=== PATIENT | female | born 1980 | race Hispanic/Latino ===

== ENCOUNTER 2018-05-16 06:59 | Inpatient (IN) | payer OTHER ==
[2018-05-16] MEDS ORDERED: ZOFRAN IV ONE (07:19)
[2018-05-16] MEDS ORDERED: DILAUDID IV ONE ×2 (07:19→10:15)
--- NOTE | 2018-05-16 07:28 | Emergency Department Report ---
HPI - General Chief Complaint: Back Pain/Injury Time Seen by Provider: 05/16/18 07:18 - [facility] HPI: Room 20 The patient is a 38-year-old female presenting with a chief complaint of back pain. The patient states she began having back pain at approximately midnight. The patient states she went to bed approximately one hour prior to arrival the pain worsened and awakened her. Patient denies abdominal pain or chest pain. Patient uncertain if she had a fever. Patient denies shortness of breath but admits to pleurisy Location: Back Duration: [See above] Quality: Pain Severity:02/24 Modifying factors: [see above] Context: [see above] Mode of transportation: [not driving] ED Past Medical Hx - Past Medical History Hx Hypertension: Yes Hx Diabetes: Yes Additional medical history: Polycystic ovarian syndrome - Surgical History Hx Appendectomy: Yes Additional Surgical History: Ovarian cyst removal, tumor removed from uterus - Family History Family history: no significant - Social History Smoking Status: Current Every Day Smoker (1/2 pack per day) Substance Use Type: Alcohol (occasional), Marijuana ED Review of Systems ROS: Stated complaint: BACK PAIN Other details as noted in HPI Constitutional: no symptoms reported Eyes: denies: eye pain ENT: denies: throat pain Respiratory: denies: shortness of breath Cardiovascular: denies: chest pain Endocrine: no symptoms reported Gastrointestinal: denies: abdominal pain Genitourinary: denies: dysuria Musculoskeletal: back pain Neurological: denies: headache Physical Exam - Physical Exam Vital Signs: Vital Signs 05/16/18 07:09 Temperature 98.3 F Pulse Rate 108 H Respiratory 21 Rate Blood Pressure 231/144 O2 Sat by Pulse 99 Oximetry Physical Exam: GENERAL: The patient is well-developed well-nourished female lying on stretcher tearful yelling in pain. [] HEENT: Normocephalic. Atraumatic. Extraocular motions are intact. Patient has moist mucous membranes. NECK: Supple. Trachea midline CHEST/LUNGS: Clear to auscultation. There is no respiratory distress noted. HEART/CARDIOVASCULAR: Regular. There is no tachycardia. There is no gallop rub or murmur. ABDOMEN: Abdomen is soft, nontender. Patient has normal bowel sounds. There is no abdominal distention. No abdominal bruit auscultated SKIN: There is no rash. There is no edema. There is no diaphoresis. NEURO: The patient is awake, alert, and oriented. The patient is cooperative. The patient has no focal neurologic deficits. The patient has normal speech MUSCULOSKELETAL: Patient complains of pain to the mid back approximately T8 level but it is not tender to palpation. ED Course Vital Signs 05/16/18 07:09 Temperature 98.3 F Pulse Rate 108 H Respiratory 21 Rate Blood Pressure 231/144 O2 Sat by Pulse 99 Oximetry ED Medical Decision Making - Lab Data Result diagrams: 05/16/18 07:22 05/16/18 07:22 Laboratory Tests 05/16/18 05/16/18 05/16/18 07:22 07:22 07:22 WBC 22.6 H RBC 5.18 H Hgb 15.9 H Hct 46.8 H MCV 90 MCH 31 MCHC 34 RDW 13.2 Plt Count 393 Lymph # Api Product Manager PT 12.6 INR 0.90 APTT 25.6 Sodium 140 Potassium 3.6 Chloride 100.6 Carbon Dioxide 22 Anion Gap 21 BUN 12 Creatinine 0.7 Estimated GFR > 60 BUN/Creatinine Ratio 17 Glucose 122 H Calcium 9.5 Total Bilirubin 0.40 AST 16 ALT 10 Alkaline Phosphatase 120 Total Creatine Kinase 59 CK-MB (CK-2) 1.1 CK-MB (CK-2) Rel Index 1.8 Troponin T < 0.010 Total Protein 8.0 Albumin 4.4 Albumin/Globulin Ratio 1.2 Lipase 39 HCG, Qual Urine Color Urine Turbidity Urine pH Ur Specific [place] Urine Protein Urine Glucose (UA) Urine Ketones Urine Blood Urine Nitrite Urine Bilirubin Urine Urobilinogen Ur Leukocyte Esterase Urine WBC (Auto) Urine RBC (Auto) U Epithel Cells (Auto) Urine Mucus Blood Type Antibody Screen 05/16/18 05/16/18 05/16/18 07:25 08:09 09:10 WBC RBC Hgb Hct MCV MCH MCHC RDW Plt Count Lymph # PT INR APTT Sodium Potassium Chloride Carbon Dioxide Anion Gap BUN Creatinine Estimated GFR BUN/Creatinine Ratio Glucose Calcium Total Bilirubin AST ALT Alkaline Phosphatase Total Creatine Kinase CK-MB (CK-2) CK-MB (CK-2) Rel Index Troponin T Total Protein Albumin Albumin/Globulin Ratio Lipase HCG, Qual Negative Urine Color Yellow Urine Turbidity Slightly-cloudy Urine pH 5.0 Ur Specific [place] > 1.059 H Urine Protein <15 mg/dl Urine Glucose (UA) Neg Urine Ketones Neg Urine Blood Mod Urine Nitrite Neg Urine Bilirubin Neg Urine Urobilinogen < 2.0 Ur Leukocyte Esterase Neg Urine WBC (Auto) 5.0 Urine RBC (Auto) 32.0 U Epithel Cells (Auto) < 1.0 Urine Mucus 1+ Blood Type A POSITIVE Antibody Screen Negative - EKG Data -: EKG Interpreted by Oh EKG shows normal: sinus rhythm Rate: normal - EKG Data When compared to previous EKG there are: previous EKG unavailable Interpretation: other (no ischemic changes seen) - Radiology Data Radiology results: report reviewed (CT chest, CT abdomen and pelvis), image reviewed (CT chest, CT abdomen and pelvis) [address] [address] Cat Scan Report Signed Patient: YAZMIN HAND MR#: [id number] : 1980 Acct:[id number] Age/Sex: 38 / F ADM Date: 05/16/18 Loc: ED Attending Dr: Ordering Physician: MICHAEL SHIN MD Date of Service: 05/16/18 Procedure(s): CT angio chest Accession Number(s): [id number] cc: MICHAEL SHIN MD FINAL REPORT EXAM: CT ANGIO CHEST HISTORY: severe back pain, hypertension TECHNIQUE: CT imaging obtained through the chest in angiographic phase following intravenous administration of contrast. Transaxial, Coronal and sagittal reformats with maximal intensity projections are provided. PRIORS: None. FINDINGS: Normal caliber main pulmonary artery. Well opacified pulmonary arterial tree. No pulmonary embolism. No pericardial effusion. Thoracic aorta is normal in course and caliber. No periaortic fluid or stranding. No pneumothorax, effusion or focal airspace disease. The central airways are patent. No bronchiectasis. Imaged portion of the upper abdomen is unremarkable. The superficial soft tissues are unremarkable. No acute bony abnormality or worrisome osseous lesions identified. IMPRESSION: No findings of acute aortic syndrome, pulmonary embolism or other acute abnormalities in the chest. Transcribed By: MB Dictated By: MAYDA MELGAR MD Electronically Authenticated By: MAYDA MELGAR MD Signed Date/Time: 05/16/18921 DD/ 4 TD/TT: 05/16/[address] [address] Cat Scan Report Signed Patient: YAZMIN HAND MR#: [id number] : 1980 Acct:[id number] Age/Sex: 38 / F ADM Date: 05/16/18 Loc: ED Attending Dr: Ordering Physician: MICHAEL SHIN MD Date of Service: 05/16/18 Procedure(s): CT abdomen pelvis w con Accession Number(s): [id number] cc: MICHAEL SHIN MD FINAL REPORT EXAM: CT ABDOMEN PELVIS W CON HISTORY: severe back pain, hypertension TECHNIQUE: CT images are acquired through the Abdomen and Pelvis in arterial phase following intravenous administration of contrast. Transaxial, coronal and sagittal reformations are provided. PRIORS: None FINDINGS: Please see CT chest of the same date. Heterogeneous arterial phase enhancement of the spleen. The liver, gallbladder, pancreas, spleen, and adrenal glands are otherwise unremarkable. Kidneys show no worrisome lesions, hydronephrosis, or calculi. Urinary bladder is unremarkable. Anteverted uterus. Small and large bowel are normal in caliber. Prior appendectomy. No free air, free fluid, or lymphadenopathy identified. Aorta is normal in course and caliber. Superficial soft tissues are unremarkable. No acute or aggressive appearing skeletal findings. IMPRESSION: No findings of acute aortic syndrome or other acute abnormality in the abdomen or pelvis. Transcribed By: MB Dictated By: MAYDA MELGAR MD Electronically Authenticated By: MAYDA MELGAR MD Signed Date/Time: 05/16/18918 DD/ 0 TD/TT: 05/16/18920 - Differential Diagnosis aortic aneurysm, aortic dissection, PE, DDD Critical care attestation.: If time is entered above; I have spent that time in minutes in the direct care of this critically ill patient, excluding procedure time. ED Disposition Clinical Impression: Acute back pain, Hypertensive urgency, Leukocytosis Disposition: OP ADMIT IP TO THIS HOSP Is pt being admited?: Yes Does the pt Need Aspirin: No Condition: Fair Referrals: PRIMARY CARE, [Primary Care Provider] - 3-5 Days Time of Disposition: 10:01 (hospitalist notified)
[2018-05-16 07:29] LABS: Hematocrit 46.8 % (30.3-42.9); Hemoglobin 15.9 gm/dl (10.1-14.3); Mean Corpuscular HGB Conc 34 % (30-34); Mean Corpuscular Hemoglobin 31 pg (28-32); Mean Corpuscular Volume 90 fl (79-97); Platelet Count 393 K/mm3 (140-440); Red Blood Count 5.18 M/mm3 (3.65-5.03); Red Cell Distribution Width 13.2 % (13.2-15.2)
[2018-05-16 07:41] LABS: INR 0.9 (0.87-1.13)
[2018-05-16 07:42] LABS: Partial Thromboplastin Time 25.6 Sec. (24.2-36.6)
[2018-05-16 07:43] LABS: Creatine Kinase MB 1.1 ng/mL (0.0-4.0)
[2018-05-16 07:44] LABS: Alanine Aminotransferase 10 units/L (7-56); Albumin 4.4 g/dL (3.9-5); BUN/Creatinine Ratio 17; Blood Urea Nitrogen 12 mg/dL (7-17); Calcium 9.5 mg/dL (8.4-10.2); Hemolysis Index 26; Lipase 39 units/L (13-60)
[2018-05-16] MEDS ORDERED: NORMODYNE IV ONE ×2 (07:50→08:51)
--- NOTE | 2018-05-16 09:19 | Cat Scan Report ---
FINAL REPORT EXAM: CT ABDOMEN PELVIS W CON HISTORY: severe back pain, hypertension TECHNIQUE: CT images are acquired through the Abdomen and Pelvis in arterial phase following intrave nous administration of contrast. Transaxial, coronal and sagittal reformations are provided. PRIORS: None FINDINGS: Please see CT chest of the same date. Heterogeneous arterial phase enhancement of the spleen. The liver, gallbladder, pancreas, spleen, and adrenal glands are otherwise unremarkable. Kidneys show no worrisome lesions, hydronephrosis, or calculi. Urinary bladder is unremarkable. Antev erted uterus. Small and large bowel are normal in caliber. Prior appendectomy. No free air, free fluid, or lymphade nopathy identified. Aorta is normal in course and caliber. Superficial soft tissues are unremarkable. No acute or aggressive appearing skeletal findings. IMPRESSION: No findings of acute aortic syndrome or other acute abnormality in the abdomen or pelvis.
--- NOTE | 2018-05-16 09:22 | Cat Scan Report ---
FINAL REPORT EXAM: CT ANGIO CHEST HISTORY: severe back pain, hypertension TECHNIQUE: CT imaging obtained through the chest in angiographic phase following intravenous adminis tration of contrast. Transaxial, Coronal and sagittal reformats with maximal intensity projections ar e provided. PRIORS: None. FINDINGS: Normal caliber main pulmonary artery. Well opacified pulmonary arterial tree. No pulmonary embolism. No pericardial effusion. Thoracic aorta is normal in course and caliber. No periaortic fluid or stranding. No pneumothorax, effusion or focal airspace disease. The central airways are patent. No bronchiectasi s. Imaged portion of the upper abdomen is unremarkable. The superficial soft tissues are unremarkable. No acute bony abnormality or worrisome osseous lesions identified. IMPRESSION: No findings of acute aortic syndrome, pulmonary embolism or other acute abnormalities in the chest.
[2018-05-16 09:24] LABS: Bilirubin,Urine NEG (Negative); Blood,Urine MOD (Negative); Color,Urine Yellow (Yellow); Mucus,Urine 1+ /HPF; Protein,Urine <15 mg/dL mg/dL (Negative); Urobilinogen,Urine < 2.0 mg/dL (<2.0)
[2018-05-16] MEDS ORDERED: NACL 0.9% 1000 ML 1,000 ML IV ONE (09:57)
[2018-05-16] MEDS ORDERED: DILAUDID ONE (10:15)
[2018-05-16] MEDS ORDERED: COZAAR ONE (12:15)
[2018-05-16] MEDS: COZAAR PO SCH (12:18)
[2018-05-16] MEDS: ROCEPHIN/NS 2 GM/100 ML 2 GM/100 ML BAG IV SCH (12:18)
[2018-05-16 13:47] LABS: Band Neutrophils # (Manual) 0.5 K/mm3; Basophils % (Manual) 0 % (0.0-1.8); Total Cells Counted 100
[2018-05-16 13:48] LABS: RBC Morphology Normal
[2018-05-16] MEDS: DILAUDID IV PRN ×3 (15:07→21:17)
--- NOTE | 2018-05-16 17:43 | History and Physical Report ---
History of Present Illness Date of examination: 05/16/18 Date of admission: 05/16/18 09:59 Chief complaint: Chief complaint Severe mid back pain since 2 AM History of present illness: [place] 38-year-old female with a history of hypertension and diabetes and hydradenitis comes in for sudden onset of mid back pain. No previous trauma or lifting heavy weights. No fever or Chills. No shortness of breath chest pain or palpitations. Pain is 10 over 10 Past Medical History Hx Hypertension: Yes Hx Diabetes: Yes Additional medical history: Polycystic ovarian syndrome Surgical History Hx Appendectomy: Yes Additional Surgical History: Ovarian cyst removal, tumor removed from uterus Family History Family history: no significant Social History Smoking Status: Current Every Day Smoker (1/2 pack per day) Substance Use Type: Alcohol (occasional), Marijuana Review of Systems ROS: Stated complaint: BACK PAIN Other details as noted in HPI Constitutional: no symptoms reported Eyes: denies: eye pain ENT: denies: throat pain Respiratory: denies: shortness of breath Cardiovascular: denies: chest pain Endocrine: no symptoms reported Gastrointestinal: denies: abdominal pain Genitourinary: denies: dysuria Musculoskeletal: back pain Neurological: denies: headache Medications and Allergies Allergies Allergy/AdvReac Type Severity Reaction Status Date / Time No Known Allergies Allergy Verified 05/16/18 10:16 Home Medications Medication Instructions Recorded Confirmed Last Taken Type metFORMIN [Glucophage] 500 mg PO BID 05/16/18 05/16/18 Unknown History Active Meds: Active Medications Hydromorphone HCl (Dilaudid) 1 mg IV Q3H PRN PRN Reason: Pain , Severe (7-10) Last Admin: 05/16/18 15:07 Dose: 1 mg Documented by: Ceftriaxone Sodium (Rocephin/Ns 2 Gm/100 Ml) 2 gm in 100 mls @ 200 mls/hr IV Q24HR NAVI; Protocol Last Admin: 05/16/18 12:18 Dose: 200 mls/hr Documented by: Losartan Potassium (Cozaar) 100 mg PO QDAY [facility] Last Admin: 05/16/18 12:18 Dose: 100 mg Documented by: Exam - Constitutional Vitals: Temp Pulse Resp BP Pulse Ox 99.2 F 81 20 176/113 97 05/16/18 14:28 05/16/18 14:00 05/16/18 14:28 05/16/18 14:28 05/16/18 14:00 General appearance: Present: no acute distress, well-nourished - EENT Eyes: Present: PERRL ENT: hearing intact, clear oral mucosa - Neck Neck: Present: supple, normal ROM - Respiratory Respiratory effort: normal Respiratory: bilateral: CTA - Cardiovascular Heart rate: 78 Rhythm: regular Heart Sounds: Present: S1 & S2. Absent: rub, click - Extremities Extremities: no ischemia, pulses intact, pulses symmetrical, No edema Extremity abnormal: other (Tenderness in T 10 the spine is mildly well- developedregion ) Peripheral Pulses: within normal limits - Abdominal General gastrointestinal: Present: soft, non-tender, non-distended, normal bowel sounds Female genitourinary: Present: normal - Integumentary Integumentary: Present: clear, warm, dry - Musculoskeletal Musculoskeletal: gait normal, strength equal bilaterally - Psychiatric Psychiatric: appropriate mood/affect, intact judgment & insight - Neurologic Neurologic: CNII-XII intact, moves all extremities Results - Labs CBC & Chem 7: 05/16/18 07:22 05/16/18 07:22 Labs: Laboratory Last Values WBC 22.6 K/mm3 (4.5-11.0) H 05/16/18 07:22 RBC 5.18 M/mm3 (3.65-5.03) H 05/16/18 07:22 Hgb 15.9 gm/dl (10.1-14.3) H 05/16/18 07:22 Hct 46.8 % (30.3-42.9) H 05/16/18 07:22 MCV 90 fl (79-97) 05/16/18 07:22 MCH 31 pg (28-32) 05/16/18 07:22 MCHC 34 % (30-34) 05/16/18 07:22 RDW 13.2 % (13.2-15.2) 05/16/18 07:22 Plt Count 393 K/mm3 (140-440) 05/16/18 07:22 Lymph # Loader Technician 05/16/18 07:22 Add Manual Diff Complete 05/16/18 07:22 Total Counted 100 05/16/18 07:22 Seg Neuts % (Manual) 65.0 % (40.0-70.0) 05/16/18 07:22 Band Neutrophils % 2.0 % 05/16/18 07:22 Lymphocytes % (Manual) 24 % (13.4-35.0) 05/16/18 07:22 Reactive Lymphs % (Man) 2 % 05/16/18 07:22 Monocytes % (Manual) 6.0 % (0.0-7.3) 05/16/18 07:22 Eosinophils % (Manual) 1.0 % (0.0-4.3) 05/16/18 07:22 Basophils % (Manual) 0 % (0.0-1.8) 05/16/18 07:22 Metamyelocytes % 0 % 05/16/18 07:22 Myelocytes % 0 % 05/16/18 07:22 Promyelocytes % 0 % 05/16/18 07:22 Blast Cells % 0 % 05/16/18 07:22 Nucleated RBC % Not Reportable 05/16/18 07:22 Seg Neutrophils # Man 14.7 K/mm3 (1.8-7.7) H 05/16/18 07:22 Band Neutrophils # 0.5 K/mm3 05/16/18 07:22 Lymphocytes # (Manual) 5.4 K/mm3 (1.2-5.4) 05/16/18 07:22 Abs React Lymphs (Man) 0.4 K/mm3 05/16/18 07:22 Monocytes # (Manual) 1.4 K/mm3 (0.0-0.8) H 05/16/18 07:22 Eosinophils # (Manual) 0.2 K/mm3 (0.0-0.4) 05/16/18 07:22 Basophils # (Manual) 0.0 K/mm3 (0.0-0.1) 05/16/18 07:22 Metamyelocytes # 0.0 K/mm3 05/16/18 07:22 Myelocytes # 0.0 K/mm3 05/16/18 07:22 Promyelocytes # 0.0 K/mm3 05/16/18 07:22 Blast Cells # 0.0 K/mm3 05/16/18 07:22 WBC Morphology Not Reportable 05/16/18 07:22 Hypersegmented Neuts Not Reportable 05/16/18 07:22 Hyposegmented Neuts Not Reportable 05/16/18 07:22 Hypogranular Neuts Not Reportable 05/16/18 07:22 Smudge Cells Not Reportable 05/16/18 07:22 Toxic Granulation Not Reportable 05/16/18 07:22 Toxic Vacuolation Not Reportable 05/16/18 07:22 Dohle Bodies Not Reportable 05/16/18 07:22 Pelger-Huet Anomaly Not Reportable 05/16/18 07:22 Artem Rods Not Reportable 05/16/18 07:22 Platelet Estimate Not Reportable 05/16/18 07:22 Clumped Platelets Not Reportable 05/16/18 07:22 Plt Clumps, EDTA Not Reportable 05/16/18 07:22 Large Platelets Not Reportable 05/16/18 07:22 Giant Platelets Not Reportable 05/16/18 07:22 Platelet Satelliting Not Reportable 05/16/18 07:22 Plt Morphology Comment Not Reportable 05/16/18 07:22 RBC Morphology Normal 05/16/18 07:22 Dimorphic RBCs Not Reportable 05/16/18 07:22 Polychromasia Not Reportable 05/16/18 07:22 Hypochromasia Not Reportable 05/16/18 07:22 Poikilocytosis Not Reportable 05/16/18 07:22 Anisocytosis Not Reportable 05/16/18 07:22 Microcytosis Not Reportable 05/16/18 07:22 Macrocytosis Not Reportable 05/16/18 07:22 Spherocytes Not Reportable 05/16/18 07:22 Pappenheimer Bodies Not Reportable 05/16/18 07:22 Sickle Cells Not Reportable 05/16/18 07:22 Target Cells Not Reportable 05/16/18 07:22 Tear Drop Cells Not Reportable 05/16/18 07:22 Ovalocytes Not Reportable 05/16/18 07:22 Helmet Cells Not Reportable 05/16/18 07:22 [place] Bodies Not Reportable 05/16/18 07:22 [place] Rings Not Reportable 05/16/18 07:22 [place] Cells Not Reportable 05/16/18 07:22 Bite Cells Not Reportable 05/16/18 07:22 Crenated Cell Not Reportable 05/16/18 07:22 Elliptocytes Not Reportable 05/16/18 07:22 Acanthocytes (Spur) Not Reportable 05/16/18 07:22 Rouleaux Not Reportable 05/16/18 07:22 Hemoglobin C Crystals Not Reportable 05/16/18 07:22 Schistocytes Not Reportable 05/16/18 07:22 Malaria parasites Not Reportable 05/16/18 07:22 [place] Bodies Not Reportable 05/16/18 07:22 Hem Pathologist Commnt No 05/16/18 07:22 PT 12.6 Sec. (12.2-14.9) 05/16/18 07:22 INR 0.90 (0.87-1.13) 05/16/18 07:22 APTT 25.6 Sec. (24.2-36.6) 05/16/18 07:22 Sodium 140 mmol/L (137-145) 05/16/18 07:22 Potassium 3.6 mmol/L (3.6-5.0) 05/16/18 07:22 Chloride 100.6 mmol/L (98-107) 05/16/18 07:22 Carbon Dioxide 22 mmol/L (22-30) 05/16/18 07:22 Anion Gap 21 mmol/L 05/16/18 07:22 BUN 12 mg/dL (7-17) 05/16/18 07:22 Creatinine 0.7 mg/dL (0.7-1.2) 05/16/18 07:22 Estimated GFR > 60 ml/min 05/16/18 07:22 BUN/Creatinine Ratio 17 % 05/16/18 07:22 Glucose 122 mg/dL (65-100) H 05/16/18 07:22 Calcium 9.5 mg/dL (8.4-10.2) 05/16/18 07:22 Total Bilirubin 0.40 mg/dL (0.1-1.2) 05/16/18 07:22 AST 16 units/L (5-40) 05/16/18 07:22 ALT 10 units/L (7-56) 05/16/18 07:22 Alkaline Phosphatase 120 units/L (35-129) 05/16/18 07:22 Total Creatine Kinase 59 units/L (30-135) 05/16/18 07:22 CK-MB (CK-2) 1.1 ng/mL (0.0-4.0) 05/16/18 07:22 CK-MB (CK-2) Rel Index 1.8 (0-4) 05/16/18 07:22 Troponin T < 0.010 ng/mL (0.00-0.029) 05/16/18 07:22 Total Protein 8.0 g/dL (6.3-8.2) 05/16/18 07:22 Albumin 4.4 g/dL (3.9-5) 05/16/18 07:22 Albumin/Globulin Ratio 1.2 % 05/16/18 07:22 Lipase 39 units/L (13-60) 05/16/18 07:22 HCG, Qual Negative (Negative) 05/16/18 08:09 Urine Color Yellow (Yellow) 05/16/18 09:10 Urine Turbidity Slightly-cloudy (Clear) 05/16/18 09:10 Urine pH 5.0 (5.0-7.0) 05/16/18 09:10 Ur Specific [place] > 1.059 (1.003-1.030) H 05/16/18 09:10 Urine Protein <15 mg/dl mg/dL (Negative) 05/16/18 09:10 Urine Glucose (UA) Neg mg/dL (Negative) 05/16/18 09:10 Urine Ketones Neg mg/dL (Negative) 05/16/18 09:10 Urine Blood Mod (Negative) 05/16/18 09:10 Urine Nitrite Neg (Negative) 05/16/18 09:10 Urine Bilirubin Neg (Negative) 05/16/18 09:10 Urine Urobilinogen < 2.0 mg/dL (<2.0) 05/16/18 09:10 Ur Leukocyte Esterase Neg (Negative) 05/16/18 09:10 Urine WBC (Auto) 5.0 /HPF (0.0-6.0) 05/16/18 09:10 Urine RBC (Auto) 32.0 /HPF (0.0-6.0) 05/16/18 09:10 U Epithel Cells (Auto) < 1.0 /HPF (0-13.0) 05/16/18 09:10 Urine Mucus 1+ /HPF 05/16/18 09:10 Blood Type A POSITIVE 05/16/18 07:25 Antibody Screen Negative 05/16/18 07:25 Short CBC 05/16/18 Range/Units 07:22 WBC 22.6 H (4.5-11.0) K/mm3 Hgb 15.9 H (10.1-14.3) gm/dl Hct 46.8 H (30.3-42.9) % Plt Count 393 (140-440) K/mm3 [facility] 05/16/18 07:22 Sodium 140 Potassium 3.6 Chloride 100.6 Carbon Dioxide 22 BUN 12 Creatinine 0.7 Glucose 122 H Calcium 9.5 Cardiac Enzymes 05/16/18 Range/Units 07:22 Total Creatine Kinase 59 (30-135) units/L CK-MB (CK-2) 1.1 (0.0-4.0) ng/mL Troponin T < 0.010 (0.00-0.029) ng/mL Liver Function 05/16/18 Range/Units 07:22 Total Bilirubin 0.40 (0.1-1.2) mg/dL AST 16 (5-40) units/L ALT 10 (7-56) units/L Alkaline Phosphatase 120 (35-129) units/L Albumin 4.4 (3.9-5) g/dL Urine 05/16/18 Range/Units 09:10 Urine Color Yellow (Yellow) Urine pH 5.0 (5.0-7.0) Ur Specific [place] > 1.059 H (1.003-1.030) Urine Protein <15 mg/dl (Negative) mg/dL Urine Glucose (UA) Neg (Negative) mg/dL - Imaging and Cardiology Imaging and Cardiology: CT of the abdomen IMPRESSION: No findings of acute aortic syndrome or other acute abnormality in the abdomen or pelvis. CT angiogram of the chest FINDINGS: Normal caliber main pulmonary artery. Well opacified pulmonary arterial tree. No pulmonary embolism. No pericardial effusion. Thoracic aorta is normal in course and caliber. No periaortic fluid or stranding. No pneumothorax, effusion or focal airspace disease. The central airways are patent. No bronchiectasis. Imaged portion of the upper abdomen is unremarkable. The superficial soft tissues are unremarkable. No acute bony abnormality or worrisome osseous lesions identified. IMPRESSION: No findings of acute aortic syndrome, pulmonary embolism or other acute abnormalities in the chest. Assessment and Plan Advance Directives: Yes (full code) VTE prophylaxis?: Chemical Plan of care discussed with patient/family: Yes - Patient Problems (1) Acute back pain Current Visit: Yes Status: Acute Qualifiers: Back pain location: thoracic back pain Plan to address problem: MRI of the T-spine to rule out discitis IV vancomycin initiated and ceftriaxone (2) Hypertensive urgency Current Visit: Yes Status: Acute Plan to address problem: Initial blood pressure 231/144 BP meds initiated initiated (3) Leukocytosis Current Visit: Yes Status: Acute Plan to address problem: Possible discitis (4) Hypertension Current Visit: Yes Status: Chronic Qualifiers: Hypertension type: essential hypertension Qualified Code(s): I10 - Essential (primary) hypertension Plan to address problem: Continue antihypertensive (5) T2DM (type 2 diabetes mellitus) Current Visit: Yes Status: Acute Qualifiers: Diabetes mellitus nursing home insulin use: without nursing home use Plan to address problem: Continue her oral hypoglycemics and coverage Check hemoglobin A1c (6) DVT prophylaxis Current Visit: Yes Status: Acute Plan to address problem: On Lovenox
[2018-05-16] MEDS ORDERED: VANCOMYCIN PHARMACY TO DOSE IV SCH (18:00)
[2018-05-16] MEDS ORDERED: VANCOMYCIN 1,500 MG in NACL 0.9% 500 ML 500 ML IV ONE (18:30)
[2018-05-16] MEDS: GLUCOPHAGE PO SCH (22:34)
[2018-05-16] MEDS: COREG PO SCH (22:34)
[2018-05-16] MEDS: HumaLOG SUB-Q SCH (22:37)
[2018-05-17] MEDS: DILAUDID IV PRN ×5 (00:28→14:13)
[2018-05-17] MEDS ORDERED: VANCOMYCIN/NS 1 GM/250 ML 1 GM/250 ML BAG IV SCH (08:00)
[2018-05-17] MEDS: HumaLOG SUB-Q SCH ×3 (08:34→16:25)
[2018-05-17] MEDS: COZAAR PO SCH (10:22)
[2018-05-17] MEDS: ROCEPHIN/NS 2 GM/100 ML 2 GM/100 ML BAG IV SCH (10:23)
[2018-05-17] MEDS: COREG PO SCH (10:23)
[2018-05-17] MEDS: GLUCOPHAGE PO SCH (10:23)
[2018-05-17] MEDS ORDERED: ZOFRAN IV PRN (12:37)
[2018-05-17 13:41] VITALS: BP 146/92
--- NOTE | 2018-05-17 14:48 | Magnetic Resonance Report ---
MRI THORACIC SPINE WITH CONTRAST HISTORY: Severe mid back pain. TECHNIQUE: Multisequence, multiplanar MRI before and after IV gadolinium. COMPARISON: CTA chest dated 05/16/18. FINDINGS: There is normal height and alignment of the thoracic vertebral bodies. Normal bone marrow signal. No evidence for fracture, subluxation, infection or bone lesion. Mild degenerative disc narrowing and desiccation is noted in the mid to lower thoracic spine. No evidence for large bulging disc or herniation. A small left paracentral disc protrusion is identified at T7-8 without mass effect. The remaining levels are within normal limits. The thoracic spinal cord is normal size and signal intensity throughout. No central canal stenosis. No evidence for abnormal enhancement following IV gadolinium. A small layering right pleural effusion has developed since the previous CTA chest. IMPRESSION: Early thoracic spondylosis as described. Small left paracentral disc protrusion at T7-8 without mass effect. New small layering right pleural effusion of uncertain etiology.
--- NOTE | 2018-05-17 16:23 | Discharge Summary ---
Providers - Providers Date of Admission: 05/16/18 09:59 Date of discharge: 05/17/18 Attending physician: RAMON CHAMPAGNE Primary care physician: ASSOCIATE DIRECT[employer] Hospitalization Condition: Fair Hospital course: Patient Problems (1) Acute back pain Current Visit: Yes Status: Acute Qualifiers: Back pain location: thoracic back pain Plan to address problem: MRI of the T-spine --No Discitis or Disc prolapse (2) Hypertensive urgency Current Visit: Yes Status: Acute Plan to address problem: Initial blood pressure 231/144 BP meds initiated initiated BP better (3) Leukocytosis Current Visit: Yes Status: Acute Plan to address problem: Demargination (4) Hypertension Current Visit: Yes Status: Chronic Qualifiers: Hypertension type: essential hypertension Qualified Code(s): I10 - Essential (primary) hypertension Plan to address problem: Continue antihypertensive (5) T2DM (type 2 diabetes mellitus) Current Visit: Yes Status: Acute 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 [facility] 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 Plan to address problem: Continue her oral hypoglycemics and coverage Check hemoglobin A1c Disposition: TO HOME OR SELFCARE - Discharge Diagnoses (1) Acute back pain Status: Acute Qualifiers: Back pain location: thoracic back pain (2) Hypertensive urgency Status: Acute (3) Leukocytosis Status: Acute (4) Hypertension Status: Chronic Qualifiers: Hypertension type: essential hypertension Qualified Code(s): I10 - Essential (primary) hypertension (5) T2DM (type 2 diabetes mellitus) Status: Acute Qualifiers: Diabetes mellitus [facility] insulin use: without [facility] use (6) DVT prophylaxis Status: Acute Core Measure Documentation - Palliative Care Palliative Care/ Comfort Measures: Not Applicable - Core Measures Any of the following diagnoses?: none Exam - Constitutional Vitals: Temp Pulse Resp BP Pulse Ox 98.1 F 90 18 146/92 98 05/17/18 13:05 05/17/18 13:05 05/17/18 13:05 05/17/18 13:05 05/17/18 13:05 General appearance: Present: no acute distress, well-nourished - EENT Eyes: Present: PERRL ENT: hearing intact, clear oral mucosa - Neck Neck: Present: supple, normal ROM - Respiratory Respiratory effort: normal Respiratory: bilateral: CTA - Cardiovascular Heart Sounds: Present: S1 & S2. Absent: rub, click - Extremities Extremities: pulses symmetrical, No edema Peripheral Pulses: within normal limits - Abdominal General gastrointestinal: Present: soft, non-tender, non-distended, normal bowel sounds Female genitourinary: Present: normal - Integumentary Integumentary: Present: clear, warm, dry - Musculoskeletal Musculoskeletal: gait normal, strength equal bilaterally - Psychiatric Psychiatric: appropriate mood/affect, intact judgment & insight - Neurologic Neurologic: CNII-XII intact, moves all extremities Plan Follow up with: PRIMARY CARE, [Primary Care Provider] - 3-5 Days
== END 2018-05-17 17:30 | disposition home or self-care (01) | DRG 552 ==
LOC: ED 06:59 → 3A 09:59
PROVIDERS: ADMIT Internal Medicine; ATTEND Internal Medicine
DX: M54.6 Pain in thoracic spine (principal); I16.0 Hypertensive urgency; D72.829 Elevated white blood cell count, unspecified; I10 Essential (primary) hypertension; E11.9 Type 2 diabetes mellitus without complications; Z90.49 Acquired absence of other specified parts of digestive tract; F17.200 Nicotine dependence, unspecified, uncomplicated
CPT/HCPCS: 36415; 71275; 72157; 74177; 80053; 81001; 82550; 82553; 82962; 83036; 83690; 84484; 84703; 85007; 85025; 85610; 85730; 86850; 86900; 86901; 93005; 93010; 96365; 96375; 99406; G0378; A9577; J0696; J1170; J2405; J3370; J7030; J7040; Q9967

== ENCOUNTER 2018-05-31 08:39 | Inpatient (IN) | payer SELFPAY ==
--- NOTE | 2018-05-31 10:08 | Emergency Department Report ---
Minor Respiratory - HPI Chief Complaint: Back Pain/Injury Stated Complaint: PAIN R SIDE Time Seen by Provider: 05/31/18 10:06 Duration: SINCE END Apr Pain Location: Chest Severity: mild Minor Respiratory: Yes Able to Tolerate Fluids, Yes Cough, Yes Chest Pain (PLEURITIC AND SHARP IN NATURE), Yes Shortness of Breath, No Rhinorrhea, No Sore Throat, No Ear Pain, No Sick Contacts, No Hemoptysis, No Fever Other History: Patient is a 38-year-old female who comes to the ER today with severe pleuritic type chest pain. Patient states that she was just recently discharged from the hospital where she was treated for back pain. She was sent home on no antibiotics at that time. She was given antihypertensives and pain medicine. Patient did not get her medications filled due to cost. She denies fever at home but does report chills. She states that nothing that she does improve the pain. Pain is worse with deep breath. She is tachycardic. No hypoxia. PMH. PCOS. DM. HTN. DC 05/16. DID NOT GET MEDS FILLED SO SHE IS TAKING NOTHING AT HOME. SHE WAS INSTRUCTED TO TAKE COREG, METFORMIN AND LOSARTAN ED Review of Systems ROS: Stated complaint: LOWER BACK PAIN Other details as noted in HPI Comment: All other systems reviewed and negative Constitutional: see HPI, chills. denies: fever Eyes: denies: eye pain ENT: as per HPI, throat pain. denies: ear pain Respiratory: see HPI, cough, shortness of breath, wheezing. denies: orthopnea, SOB with exertion, SOB at rest, stridor Cardiovascular: as per HPI, chest pain. denies: palpitations, dyspnea on exertion, orthopnea, edema, syncope, paroxysmal nocturnal dyspnea Endocrine: denies: flushing, intolerance to cold, intolerance to heat Gastrointestinal: denies: abdominal pain, nausea Genitourinary: denies: urgency, dysuria Musculoskeletal: back pain Skin: denies: rash, lesions Neurological: denies: headache, weakness Psychiatric: denies: anxiety, depression Hematological/Lymphatic: denies: easy bleeding ED Past Medical Hx - Past Medical History Previous Medical History?: Yes Hx Hypertension: Yes Hx Diabetes: No Additional medical history: Polycystic ovarian syndrome; OCCASIONAL THC - Surgical History Past Surgical History?: Yes Hx Appendectomy: Yes (2007) Additional Surgical History: Ovarian cyst removal, tumor removed from uterus - Family History Family history: no significant - Social History Smoking Status: Current Every Day Smoker Substance Use Type: Marijuana - Medications Home Medications: Home Medications Medication Instructions Recorded Confirmed Last Taken Type Carvedilol [Coreg] 6.25 mg PO BID #60 tablet 05/17/18 Unknown Rx Losartan [Cozaar] 100 mg PO QDAY #30 tablet 05/17/18 Unknown Rx metFORMIN [Glucophage] 500 mg PO BID #60 tablet 05/17/18 Unknown Rx oxyCODONE [Roxicodone TAB] 10 mg PO Q6HR PRN #20 tablet 05/17/18 Unknown Rx Minor Respiratory Exam - Exam General: Vital signs noted. No distress. Alert and acting appropriately. HEENT: Yes Moist Mucous Membranes, No Pharyngeal Erythema, No Pharyngeal Exudates, No Rhinorrhea, No Conjuctival Injection, No Frontal Tenderness, No Maxillary Tenderness Ear: Neither TM Bulge, Neither TM Erythema, Neither EAC Pain, Neither EAC Discharge Neck: Yes Supple, No Adenopathy Lungs: Yes Good Air Exchange, Yes Wheezes, Yes Cough, No Ronchi, No Stridor, No Labored Respirations, No Retractions, No Use of Accessory Muscles, No Other Abnormal Lung Sounds Heart: Yes Regular, No Murmur Abdomen: Yes Normal Bowel Sounds, No Tenderness, No Peritoneal Signs Skin: No Rash, No Edema Neurologic: Alert and oriented, no deficits. Musculoskeletal: Unremarkable. ED Course Vital Signs 05/31/18 05/31/18 08:45 09:58 Temperature 98.6 F Pulse Rate 109 H Respiratory 22 16 Rate Blood Pressure 147/91 O2 Sat by Pulse 97 Oximetry ED Medical Decision Making - Lab Data Result diagrams: 05/31/18 10:19 05/31/18 10:19 - EKG Data -: EKG Interpreted by Tx EKG shows normal: sinus rhythm Rate: tachycardia - EKG Data Interpretation: no acute changes - Radiology Data Radiology results: report reviewed, image reviewed CT PNA XRAY NAP - Medical Decision Making PE NO STRAIN ON [address] NO HYPOXIA PLEURITIC CHEST PAIN DDIMER POS NO EVIDENCE ON CT ACS TROP NEG NO ST ELEVATION/DEPRESSION RISK: HTN, DM, OBESE, FAM HX, CIG SMOKER AORTIC DISEASE NO EVIDENT ON CT/XRAY NO HYPOTENSION/TACHY PNA WBC INC 19 INC ALK PHOS TACHYCARDIA NOT FEBRILE IN ER- POS CHILLS SEVERE PLEURITIC CHEST PAIN PNA NOTED ON CT PER RAD REPORT- REVIEWED WITH DR HUNT PT HAS BEEN CULTURED (URINE/BLOOD), RECEIVED FLUIDS PER SEPSIS PROTOCOL, ANTIBIOTICS, LACTIC ACID NORMAL, PAIN MEDICATIONS. SEE ORDERS HER PAIN HAS REQUIRED LORTAB AND DILAUDID. SHE HAS BEEN MEDICATED FOR HTN WITH CLONIDINE PO. [address] RUIZ- WILL CONSULT DR POE FOR DISPO- ADMIT OR DC Labs 05/31/18 05/31/18 05/31/18 10:19 10:19 10:19 WBC 19.2 H RBC 4.30 Hgb 13.0 Hct 38.7 MCV 90 MCH 30 MCHC 34 RDW 13.7 Plt Count 470 H Lymph % (Auto) 14.6 [place] % (Auto) 10.2 H Eos % (Auto) 1.8 Baso % (Auto) 1.1 Lymph # 2.8 [place] # 2.0 H Eos # 0.3 Baso # 0.2 H Seg Neutrophils % 72.3 H Seg Neutrophils # 13.8 H D-Dimer 952.72 H Sodium 137 Potassium 3.6 Chloride 98.7 Carbon Dioxide 22 Anion Gap 20 BUN 15 Creatinine 0.6 L Estimated GFR > 60 BUN/Creatinine Ratio 25 Glucose 102 H Lactic Acid Calcium 9.1 Total Bilirubin 0.40 AST 44 H ALT 56 Alkaline Phosphatase 188 H Troponin T Total Protein 7.7 Albumin 3.1 L Albumin/Globulin Ratio 0.7 Urine Color Urine Turbidity Urine pH Ur Specific [place] Urine Protein Urine Glucose (UA) Urine Ketones Urine Blood Urine Nitrite Urine Bilirubin Urine Urobilinogen Ur Leukocyte Esterase Urine WBC (Auto) Urine RBC (Auto) U Epithel Cells (Auto) Urine Bacteria (Auto) Urine Mucus Urine HCG, Qual Urine Opiates Screen Urine Methadone Screen Ur Barbiturates Screen Ur Phencyclidine Scrn Ur Amphetamines Screen U Benzodiazepines Scrn Urine Cocaine Screen U Marijuana (THC) Screen Drugs of Abuse Note 05/31/18 05/31/18 05/31/18 11:20 11:20 12:31 WBC RBC Hgb Hct MCV MCH MCHC RDW Plt Count Lymph % (Auto) [place] % (Auto) Eos % (Auto) Baso % (Auto) Lymph # [place] # Eos # Baso # Seg Neutrophils % Seg Neutrophils # D-Dimer Sodium Potassium Chloride Carbon Dioxide Anion Gap BUN Creatinine Estimated GFR BUN/Creatinine Ratio Glucose Lactic Acid 1.20 Calcium Total Bilirubin AST ALT Alkaline Phosphatase Troponin T < 0.010 Total Protein Albumin Albumin/Globulin Ratio Urine Color Yellow Urine Turbidity Clear Urine pH 5.0 Ur Specific [place] 1.058 H Urine Protein 30 mg/dl Urine Glucose (UA) Neg Urine Ketones Neg Urine Blood Mod Urine Nitrite Neg Urine Bilirubin Neg Urine Urobilinogen 4.0 Ur Leukocyte Esterase Neg Urine WBC (Auto) 4.0 Urine RBC (Auto) 9.0 U Epithel Cells (Auto) 6.0 Urine Bacteria (Auto) 1+ Urine Mucus 1+ Urine HCG, Qual Negative Urine Opiates Screen Urine Methadone Screen Ur Barbiturates Screen Ur Phencyclidine Scrn Ur Amphetamines Screen U Benzodiazepines Scrn Urine Cocaine Screen U Marijuana (THC) Screen Drugs of Abuse Note 05/31/18 12:37 WBC RBC Hgb Hct MCV MCH MCHC RDW Plt Count Lymph % (Auto) [place] % (Auto) Eos % (Auto) Baso % (Auto) Lymph # [place] # Eos # Baso # Seg Neutrophils % Seg Neutrophils # D-Dimer Sodium Potassium Chloride Carbon Dioxide Anion Gap BUN Creatinine Estimated GFR BUN/Creatinine Ratio Glucose Lactic Acid Calcium Total Bilirubin AST ALT Alkaline Phosphatase Troponin T Total Protein Albumin Albumin/Globulin Ratio Urine Color Urine Turbidity Urine pH Ur Specific [place] Urine Protein Urine Glucose (UA) Urine Ketones Urine Blood Urine Nitrite Urine Bilirubin Urine Urobilinogen Ur Leukocyte Esterase Urine WBC (Auto) Urine RBC (Auto) U Epithel Cells (Auto) Urine Bacteria (Auto) Urine Mucus Urine HCG, Qual Urine Opiates Screen Presumptive negative Urine Methadone Screen Presumptive negative Ur Barbiturates Screen Presumptive negative Ur Phencyclidine Scrn Presumptive negative Ur Amphetamines Screen Presumptive negative U Benzodiazepines Scrn Presumptive negative Urine Cocaine Screen Presumptive negative U Marijuana (THC) Screen Presumptive positive Drugs of Abuse Note Disclamer - Differential Diagnosis RO PE; AO DISSECTION; ACS; PNA Critical care attestation.: If time is entered above; I have spent that time in minutes in the direct care of this critically ill patient, excluding procedure time. ED Disposition Clinical Impression: PNA (pneumonia), Leukocytosis, History of PCOS, Hypertension, T2DM (type 2 diabetes mellitus), Pleuritic chest pain Disposition: OP ADMIT IP TO THIS HOSP Is pt being admited?: Yes Does the pt Need Aspirin: No Condition: Stable Referrals: CHRIS ORTIZ MD [Referring] - 3-5 Days Time of Disposition: 16:07
[2018-05-31 10:37] LABS: Basophils # (Auto) 0.2 K/mm3 (0.0-0.1); Basophils % (Auto) 1.1 % (0.0-1.8); Eosinophils # (Auto) 0.3 K/mm3 (0.0-0.4); Eosinophils % (Auto) 1.8 % (0.0-4.3); Hematocrit 38.7 % (30.3-42.9); Lymphocytes # (Auto) 2.8 K/mm3 (1.2-5.4); Lymphocytes % (Auto) 14.6 % (13.4-35.0); Mean Corpuscular HGB Conc 34 % (30-34); Mean Corpuscular Volume 90 fl (79-97); Monocytes % (Auto) 10.2 % (0.0-7.3); Platelet Count 470 K/mm3 (140-440); Red Cell Distribution Width 13.7 % (13.2-15.2)
[2018-05-31] MEDS ORDERED: NORCO 5/325 PO ONE (10:59)
[2018-05-31 11:01] LABS: Alanine Aminotransferase 56 units/L (7-56); Albumin 3.1 g/dL (3.9-5); BUN/Creatinine Ratio 25; Blood Urea Nitrogen 15 mg/dL (7-17); Calcium 9.1 mg/dL (8.4-10.2); Hemolysis Index 7
--- NOTE | 2018-05-31 12:43 | Cat Scan Report ---
CTA CHEST: HISTORY: Severe chest. COMPARISON: 05/16/18. TECHNIQUE: Helical CT in 1.25mm intervals following IV contrast. Pulmonary embolus protocol. Sagittal and coronal reformatted images. Rotational MIP images. FINDINGS: Contrast bolus is satisfactory. No pulmonary embolus is identified. Thyroid gland: Normal. Tracheobronchial tree: Normal. Esophagus: Normal. Heart: Normal. Pericardium: Normal. Mediastinum: Normal. Lung Simpson: There is a new focal area of consolidation in the medial right lower lobe measuring 4.1 x 1.9 cm in axial plane. This may represent collapsed lung or focal pneumonia. The remainder of the lungs are clear. No underlying parenchymal lung disease is appreciated. Pleural Spaces: Normal. Small right pleural effusion has resolved since the MRI thoracic spine dated 05/17/18. Musculoskeletal: Mild thoracic spondylosis. No fracture or suspicious bony lesion. IMPRESSION: No evidence for pulmonary embolus. New focal air space opacity in the medial right lower lobe. Correlate for pneumonia.
[2018-05-31 12:57] LABS: Bacteria,Urine 1+ /HPF (Negative); Bilirubin,Urine NEG (Negative); Blood,Urine MOD (Negative); Color,Urine Yellow (Yellow); Mucus,Urine 1+ /HPF
[2018-05-31 12:59] LABS: HCG Qualitative,Urine Negative (Negative)
[2018-05-31 13:04] LABS: Amphetamine Screen,Urine PRESUMPTIVE NEGATIVE; Benzodiazepines Screen,Urine PRESUMPTIVE NEGATIVE; Cocaine Screen,Urine PRESUMPTIVE NEGATIVE; Methadone Screen,Urine PRESUMPTIVE NEGATIVE; Opiate Screen,Urine PRESUMPTIVE NEGATIVE
[2018-05-31] MEDS ORDERED: NACL 0.9% 1000 ML IV ONE (13:05)
[2018-05-31] MEDS ORDERED: MORPHINE IV ONE (13:05)
[2018-05-31] MEDS ORDERED: MAXIPIME/NS 2 GM/100 ML 2 GM/100 ML BAG IV ONE (13:07)
[2018-05-31 13:55] LABS: Cannabinoid Screen,Urine PRESUMPTIVE POSITIVE
--- NOTE | 2018-05-31 13:55 | XRay Report ---
ROUTINE CHEST, TWO VIEWS: HISTORY: Fever. The trachea, heart, mediastinal contour, lung wright and bony thorax are unremarkable. IMPRESSION: Unremarkable chest x-ray.
[2018-05-31] MEDS ORDERED: DILAUDID IV ONE (14:23)
[2018-05-31] MEDS ORDERED: DILAUDID ONE (14:31)
[2018-05-31] MEDS ORDERED: NACL 0.9% 1000 ML 1,000 ML ONE (15:19)
[2018-05-31] MEDS ORDERED: PROVENTIL IH ONE (16:08)
[2018-05-31] MEDS ORDERED: CATAPRES PO ONE (16:44)
[2018-05-31] MEDS ORDERED: ZOSYN/NS 3.375GM/50ML 3.375 GM/50 ML BAG IV ONE (16:58)
--- NOTE | 2018-05-31 17:18 | History and Physical Report ---
History of Present Illness Chief complaint: I feel sick History of present illness: 38 YO Female with Obesity, Nicotine Dependence, HTN, PCOS presents to ED for evaluation. Pt stats that she has experienced shortness of breath, malaise over the past 1 week, with worsening symptoms over the past 2 days. Pt transported to [facility] for further care and evaluation. Pt seen and evaluated in ED and found to have Sepsis secondary to RLL Pneumonia. Pt admitted to medical floor. Pt initiated on Sepsis protocol. Pt denies fever, chills, CP, Palpitations, NVD, Trauma, recent ill contacts. Past History Past Medical History: diabetes, hypertension, other (PCOS) Past Surgical History: appendectomy Social history: single, smoking Family history: diabetes, hypertension Medications and Allergies Allergies Allergy/AdvReac Type Severity Reaction Status Date / Time No Known Allergies Allergy Verified 05/16/18 10:16 Home Medications Medication Instructions Recorded Confirmed Last Taken Type Carvedilol [Coreg] 6.25 mg PO BID #60 tablet 05/17/18 05/31/18 05/30/18 10:00 Rx Losartan [Cozaar] 100 mg PO QDAY #30 tablet 05/17/18 05/31/18 05/30/18 10:00 Rx metFORMIN [Glucophage] 500 mg PO BID #60 tablet 05/17/18 05/31/18 05/30/18 10:00 Rx oxyCODONE [Roxicodone TAB] 10 mg PO Q6HR PRN #20 tablet 05/17/18 05/31/18 05/30/18 10:00 Rx Gabapentin [Neurontin] 600 mg PO PRN 06/01/18 Unknown History Review of Systems Constitutional: weakness, malaise, no weight loss, no weight gain, no fever Ears, nose, mouth and throat: no ear pain, no ear discharge, no tinnitis, no decreased hearing, no nose pain, no nasal congestion Breasts: no change in shape, no swelling, no mass Cardiovascular: no chest pain, no orthopnea, no palpitations Respiratory: cough, shortness of breath, pleurisy Gastrointestinal: no nausea, no vomiting, no diarrhea, no constipation Genitourinary Female: no pelvic pain, no flank pain, no menorrhagia, no dysuria Rectal: no pain, no incontinence, no bleeding Musculoskeletal: no neck stiffness, no neck pain, no shooting arm pain, no arm numbness/tingling, no low back pain, no shooting leg pain Integumentary: no rash, no pruritis, no redness, no sores, no wounds Neurological: no paralysis, no weakness, no parathesias, no numbness, no tingling, no seizures Psychiatric: no anxiety, no memory loss, no change in sleep habits, no sleep disturbances, no insomnia, no change in appetite Endocrine: no cold intolerance, no heat intolerance, no polyphagia, no excessive thirst, no polydipsia, no polyuria Hematologic/Lymphatic: no easy bruising, no easy bleeding, no lymphadenopathy, no lymphedema Allergic/Immunologic: no urticaria, no allergic rhinitis, no wheezing Exam - Constitutional Vitals: Temp Pulse Resp BP Pulse Ox 98.6 F 108 H 18 198/117 99 05/31/18 08:45 05/31/18 16:48 05/31/18 16:44 05/31/18 16:48 05/31/18 16:44 General appearance: Present: mild distress, obese - EENT Eyes: Present: PERRL ENT: hearing intact, clear oral mucosa - Neck Neck: Present: supple, normal ROM - Respiratory Respiratory effort: labored Respiratory: right: diminished - Cardiovascular Heart Sounds: Present: S1 & S2. Absent: rub, click - Extremities Extremities: pulses symmetrical, No edema Peripheral Pulses: abnormal (capillary refill greater than 3.5 seconds) - Abdominal General gastrointestinal: Present: soft, non-tender, non-distended, normal bowel sounds Female genitourinary: Present: normal - Integumentary Integumentary: Present: clear, clammy, decreased turgor - Musculoskeletal Musculoskeletal: generalized weakness - Psychiatric Psychiatric: appropriate mood/affect, intact judgment & insight - Neurologic Neurologic: CNII-XII intact, moves all extremities Results - Labs CBC & Chem 7: 05/31/18 10:19 05/31/18 10:19 Labs: Abnormal lab results 05/31/18 05/31/18 05/31/18 Range/Units 10:19 10: 10:19 WBC 19.2 H (4.5-11.0) K/mm3 Plt Count 470 H (140-440) K/mm3 [place] % (Auto) 10.2 H (0.0-7.3) % [place] # 2.0 H (0.0-0.8) K/mm3 Baso # 0.2 H (0.0-0.1) K/mm3 Seg Neutrophils % 72.3 H (40.0-70.0) % Seg Neutrophils # 13.8 H (1.8-7.7) K/mm3 D-Dimer 952.72 H (0-234) ng/mlDDU Creatinine 0.6 L (0.7-1.2) mg/dL Glucose 102 H (65-100) mg/dL AST 44 H (5-40) units/L Alkaline Phosphatase 188 H (35-129) units/L Albumin 3.1 L (3.9-5) g/dL Ur Specific [place] (1.003-1.030) 05/31/18 Range/Units 12:31 WBC (4.5-11.0) K/mm3 Plt Count (140-440) K/mm3 [place] % (Auto) (0.0-7.3) % [place] # (0.0-0.8) K/mm3 Baso # (0.0-0.1) K/mm3 Seg Neutrophils % (40.0-70.0) % Seg Neutrophils # (1.8-7.7) K/mm3 D-Dimer (0-234) ng/mlDDU Creatinine (0.7-1.2) mg/dL Glucose (65-100) mg/dL AST (5-40) units/L Alkaline Phosphatase (35-129) units/L Albumin (3.9-5) g/dL Ur Specific [place] 1.058 H (1.003-1.030) Assessment and Plan - Patient Problems (1) Sepsis Current Visit: Yes Status: Acute Qualifiers: Sepsis type: sepsis due to unspecified organism Qualified Code(s): A41.9 - Sepsis, unspecified organism Plan to address problem: IV antibiotic therapy, IV antibiotic therapy, serial lactic acid, chest x ray, urinalysis, Influenza swab, HIV 1&2, CTA chest, blood cultures, monitor uop q shift. (2) PNA (pneumonia) Current Visit: Yes Status: Acute Qualifiers: Laterality: right Lung location: lower lobe of lung Plan to address problem: IV antibiotic therapy, chest x ray, supplemental oxygen, nebulizer therapy, blood cultures. (3) HTN (hypertension) Current Visit: Yes Status: Acute Qualifiers: Hypertension type: essential hypertension Qualified Code(s): I10 - Essential (primary) hypertension Plan to address problem: Monitor bp q shift, continue medical management (4) Diabetes Current Visit: Yes Status: Acute Plan to address problem: ADA diet, insulin, accu check (5) Nicotine dependence unspecified, with withdrawal Current Visit: Yes Status: Acute Qualifiers: Nicotine product type: cigarettes Qualified Code(s): F17.213 - Nicotine dependence, cigarettes, with withdrawal Plan to address problem: Smoking cessation counseling, supportive care (6) DVT prophylaxis Current Visit: Yes Status: Acute Plan to address problem: SCD to BLE while in bed.
[2018-05-31] MEDS ORDERED: ZOFRAN IV PRN (17:21)
[2018-05-31] MEDS ORDERED: PROVENTIL IH PRN (17:21)
[2018-05-31] MEDS ORDERED: D50W (25GM) Syringe IV PRN (17:25)
[2018-05-31] MEDS: ROXICODONE PO PRN ×2 (17:58→23:03)
[2018-05-31] MEDS: TYLENOL PO PRN (20:54)
[2018-05-31] MEDS: COREG PO SCH (23:04)
[2018-05-31] MEDS: SODIUM CHLORIDE FLUSH SYRINGE 10 ML IV SCH (23:05)
[2018-05-31] MEDS: HumaLOG SUB-Q SCH (23:22)
[2018-06-01] MEDS: NEURONTIN PO PRN ×2 (01:45→09:20)
[2018-06-01] MEDS ORDERED: APRESOLINE IV ONE (02:03)
[2018-06-01 02:58] LABS: Hematocrit 35.6 % (30.3-42.9); Mean Corpuscular HGB Conc 34 % (30-34); Mean Corpuscular Volume 90 fl (79-97); Platelet Count 466 K/mm3 (140-440); Red Blood Count 3.95 M/mm3 (3.65-5.03); Red Cell Distribution Width 14.2 % (13.2-15.2)
[2018-06-01] MEDS: ROXICODONE PO PRN ×3 (04:22→16:01)
[2018-06-01 06:46] LABS: Band Neutrophils # (Manual) 1.1 K/mm3; Basophils % (Manual) 0 % (0.0-1.8); Eosinophils % (Manual) 0 % (0.0-4.3); Monocytes % (Manual) 0 % (0.0-7.3); Platelet Estimate Consistent w Auto; Total Cells Counted 100
[2018-06-01] MEDS: HumaLOG SUB-Q SCH ×4 (07:46→22:00)
[2018-06-01] MEDS: COREG PO SCH ×2 (09:20→22:00)
[2018-06-01] MEDS: COZAAR PO SCH (09:21)
[2018-06-01] MEDS: ROCEPHIN/NS 2 GM/100 ML 2 GM/100 ML BAG IV SCH (10:23)
[2018-06-01] MEDS: HABITROL TD SCH (10:23)
[2018-06-01] MEDS: SODIUM CHLORIDE FLUSH SYRINGE 10 ML IV SCH ×2 (10:24→22:02)
--- NOTE | 2018-06-01 11:51 | Progress Note ---
Assessment and Plan Assessment and plan: 78-year-old woman who presented with pleuritic chest pain CT angiogram of her chest is negative for PE, positive for right middle lobe pneumonia Problems Sepsis Pneumonia Hypertension Diabetes Nicotine abuse with dependence THC abuse cervical radiculopathy Plan IV fluids, antibiotics Optimize medications for chronic conditions Counseling about tobacco cessation Nicotine patches Counseling about THC cessation medrol, pain meds, muscle relaxants DVT prophylaxis early ambulation History Interval history: Chest pain is improved She still having cough c/o neck pain, and decreased ROM, muscle spasms Review of systems Constitutional: No fevers, no malaise, no joint pains CVS: , no orthopnea, no dyspnea on exertion, no pedal edema GI: No abdominal pain, no diarrhea, no vomiting, no constipation Respiratory: No shortness of breath, no wheezing, Hospitalist Physical - Physical exam Narrative exam: General.: Appears well, no distress, nontoxic HEENT: Moist mucous membranes, extraocular muscles intact, no lymphadenopathy Neck: supple, decreased ROM on neck, turning neck is painful to patient Cardiac: S1-S2 heard Lungs: r lung crackles Abdomen: soft , nontender, nondistended, bowel sounds positive Extremities: no edema clubbing or cyanosis Skin: no rash or lesions Neurologic: no gross focal deficits Psych: calm, and cooperative - Constitutional Vitals: Temp Pulse Resp BP Pulse Ox 98.3 F 87 20 129/65 97 06/01/18 05:05 06/01/18 05:05 06/01/18 05:05 06/01/18 05:05 06/01/18 05:05 General appearance: Present: mild distress, obese Results - Labs CBC & Chem 7: 06/01/18 02:45 05/31/18 10:19 Labs: Laboratory Last Values WBC 21.8 K/mm3 (4.5-11.0) H 06/01/18 02:45 RBC 3.95 M/mm3 (3.65-5.03) 06/01/18 02:45 Hgb 12.0 gm/dl (10.1-14.3) 06/01/18 02:45 Hct 35.6 % (30.3-42.9) 06/01/18 02:45 MCV 90 fl (79-97) 06/01/18 02:45 MCH 30 pg (28-32) 06/01/18 02:45 MCHC 34 % (30-34) 06/01/18 02:45 RDW 14.2 % (13.2-15.2) 06/01/18 02:45 Plt Count 466 K/mm3 (140-440) H 06/01/18 02:45 Lymph % (Auto) 14.6 % (13.4-35.0) 05/31/18 10:19 [place] % (Auto) 10.2 % (0.0-7.3) H 05/31/18 10:19 Eos % (Auto) 1.8 % (0.0-4.3) 05/31/18 10:19 Baso % (Auto) 1.1 % (0.0-1.8) 05/31/18 10:19 Lymph # 2.8 K/mm3 (1.2-5.4) 05/31/18 10:19 [place] # 2.0 K/mm3 (0.0-0.8) H 05/31/18 10:19 Eos # 0.3 K/mm3 (0.0-0.4) 05/31/18 10:19 Baso # 0.2 K/mm3 (0.0-0.1) H 05/31/18 10:19 Add Manual Diff Complete 06/01/18 02:45 Total Counted 100 06/01/18 02:45 Seg Neutrophils % 72.3 % (40.0-70.0) H 05/31/18 10:19 Seg Neuts % (Manual) 78.0 % (40.0-70.0) H 06/01/18 02:45 Band Neutrophils % 5.0 % 06/01/18 02:45 Lymphocytes % (Manual) 17.0 % (13.4-35.0) 06/01/18 02:45 Reactive Lymphs % (Man) 0 % 06/01/18 02:45 Monocytes % (Manual) 0 % (0.0-7.3) 06/01/18 02:45 Eosinophils % (Manual) 0 % (0.0-4.3) 06/01/18 02:45 Basophils % (Manual) 0 % (0.0-1.8) 06/01/18 02:45 Metamyelocytes % 0 % 06/01/18 02:45 Myelocytes % 0 % 06/01/18 02:45 Promyelocytes % 0 % 06/01/18 02:45 Blast Cells % 0 % 06/01/18 02:45 Nucleated RBC % Not Reportable 06/01/18 02:45 Seg Neutrophils # 13.8 K/mm3 (1.8-7.7) H 05/31/18 10:19 Seg Neutrophils # Man 17.0 K/mm3 (1.8-7.7) H 06/01/18 02:45 Band Neutrophils # 1.1 K/mm3 06/01/18 02:45 Lymphocytes # (Manual) 3.7 K/mm3 (1.2-5.4) 06/01/18 02:45 Abs React Lymphs (Man) 0.0 K/mm3 06/01/18 02:45 Monocytes # (Manual) 0.0 K/mm3 (0.0-0.8) 06/01/18 02:45 Eosinophils # (Manual) 0.0 K/mm3 (0.0-0.4) 06/01/18 02:45 Basophils # (Manual) 0.0 K/mm3 (0.0-0.1) 06/01/18 02:45 Metamyelocytes # 0.0 K/mm3 06/01/18 02:45 Myelocytes # 0.0 K/mm3 06/01/18 02:45 Promyelocytes # 0.0 K/mm3 06/01/18 02:45 Blast Cells # 0.0 K/mm3 06/01/18 02:45 WBC Morphology Not Reportable 06/01/18 02:45 Hypersegmented Neuts Not Reportable 06/01/18 02:45 Hyposegmented Neuts Not Reportable 06/01/18 02:45 Hypogranular Neuts Not Reportable 06/01/18 02:45 Smudge Cells Not Reportable 06/01/18 02:45 Toxic Granulation Not Reportable 06/01/18 02:45 Toxic Vacuolation Not Reportable 06/01/18 02:45 Dohle Bodies Not Reportable 06/01/18 02:45 Pelger-Huet Anomaly Not Reportable 06/01/18 02:45 Artem Rods Not Reportable 06/01/18 02:45 Platelet Estimate Consistent w auto 06/01/18 02:45 Clumped Platelets Not Reportable 06/01/18 02:45 Plt Clumps, EDTA Not Reportable 06/01/18 02:45 Large Platelets Not Reportable 06/01/18 02:45 Giant Platelets Not Reportable 06/01/18 02:45 Platelet Satelliting Not Reportable 06/01/18 02:45 Plt Morphology Comment Not Reportable 06/01/18 02:45 RBC Morphology Not Reportable 06/01/18 02:45 Dimorphic RBCs Not Reportable 06/01/18 02:45 Polychromasia Not Reportable 06/01/18 02:45 Hypochromasia Not Reportable 06/01/18 02:45 Poikilocytosis Not Reportable 06/01/18 02:45 Anisocytosis Not Reportable 06/01/18 02:45 Microcytosis Not Reportable 06/01/18 02:45 Macrocytosis Not Reportable 06/01/18 02:45 Spherocytes Not Reportable 06/01/18 02:45 Pappenheimer Bodies Not Reportable 06/01/18 02:45 Sickle Cells Not Reportable 06/01/18 02:45 Target Cells Not Reportable 06/01/18 02:45 Tear Drop Cells Not Reportable 06/01/18 02:45 Ovalocytes Not Reportable 06/01/18 02:45 Helmet Cells Not Reportable 06/01/18 02:45 Johnson-Denio Bodies Not Reportable 06/01/18 02:45 [place] Rings Not Reportable 06/01/18 02:45 [place] Cells Not Reportable 06/01/18 02:45 Bite Cells Not Reportable 06/01/18 02:45 Crenated Cell Not Reportable 06/01/18 02:45 Elliptocytes Not Reportable 06/01/18 02:45 Acanthocytes (Spur) Not Reportable 06/01/18 02:45 Rouleaux Not Reportable 06/01/18 02:45 Hemoglobin C Crystals Not Reportable 06/01/18 02:45 Schistocytes Not Reportable 06/01/18 02:45 Malaria parasites Not Reportable 06/01/18 02:45 Santhosh Bodies Not Reportable 06/01/18 02:45 Hem Pathologist Commnt No 06/01/18 02:45 D-Dimer 952.72 ng/mlDDU (0-234) H 05/31/18 10:19 Sodium 137 mmol/L (137-145) 05/31/18 10:19 Potassium 3.6 mmol/L (3.6-5.0) 05/31/18 10:19 Chloride 98.7 mmol/L (98-107) 05/31/18 10:19 Carbon Dioxide 22 mmol/L (22-30) 05/31/18 10:19 Anion Gap 20 mmol/L 05/31/18 10:19 BUN 15 mg/dL (7-17) 05/31/18 10:19 Creatinine 0.6 mg/dL (0.7-1.2) L 05/31/18 10:19 Estimated GFR > 60 ml/min 05/31/18 10:19 BUN/Creatinine Ratio 25 % 05/31/18 10:19 Glucose 102 mg/dL (65-100) H 05/31/18 10:19 POC Glucose 94 (70-105) 06/01/18 11:30 Lactic Acid 1.00 mmol/L (0.7-2.0) 06/01/18 02:45 Calcium 9.1 mg/dL (8.4-10.2) 05/31/18 10:19 Total Bilirubin 0.40 mg/dL (0.1-1.2) 05/31/18 10:19 AST 44 units/L (5-40) H 05/31/18 10:19 ALT 56 units/L (7-56) 05/31/18 10:19 Alkaline Phosphatase 188 units/L (35-129) H 05/31/18 10:19 Troponin T < 0.010 ng/mL (0.00-0.029) 05/31/18 11:20 Total Protein 7.7 g/dL (6.3-8.2) 05/31/18 10:19 Albumin 3.1 g/dL (3.9-5) L 05/31/18 10:19 Albumin/Globulin Ratio 0.7 % 05/31/18 10:19 Urine Color Yellow (Yellow) 05/31/18 12:31 Urine Turbidity Clear (Clear) 05/31/18 12:31 Urine pH 5.0 (5.0-7.0) 05/31/18 12:31 Ur Specific [place] 1.058 (1.003-1.030) H 05/31/18 12:31 Urine Protein 30 mg/dl mg/dL (Negative) 05/31/18 12:31 Urine Glucose (UA) Neg mg/dL (Negative) 05/31/18 12:31 Urine Ketones Neg mg/dL (Negative) 05/31/18 12:31 Urine Blood Mod (Negative) 05/31/18 12:31 Urine Nitrite Neg (Negative) 05/31/18 12:31 Urine Bilirubin Neg (Negative) 05/31/18 12:31 Urine Urobilinogen 4.0 mg/dL (<2.0) 05/31/18 12:31 Ur Leukocyte Esterase Neg (Negative) 05/31/18 12:31 Urine WBC (Auto) 4.0 /HPF (0.0-6.0) 05/31/18 12:31 Urine RBC (Auto) 9.0 /HPF (0.0-6.0) 05/31/18 12:31 U Epithel Cells (Auto) 6.0 /HPF (0-13.0) 05/31/18 12:31 Urine Bacteria (Auto) 1+ /HPF (Negative) 05/31/18 12:31 Urine Mucus 1+ /HPF 05/31/18 12:31 Urine HCG, Qual Negative (Negative) 05/31/18 12:31 Urine Opiates Screen Presumptive negative 05/31/18 12:37 Urine Methadone Screen Presumptive negative 05/31/18 12:37 Ur Barbiturates Screen Presumptive negative 05/31/18 12:37 Ur Phencyclidine Scrn Presumptive negative 05/31/18 12:37 Ur Amphetamines Screen Presumptive negative 05/31/18 12:37 U Benzodiazepines Scrn Presumptive negative 05/31/18 12:37 Urine Cocaine Screen Presumptive negative 05/31/18 12:37 U Marijuana (THC) Screen Presumptive positive 05/31/18 12:37 Drugs of Abuse Note Disclamer 05/31/18 12:37 HIV 1&2 Antibody Rapid Non react (Non React) 05/31/18 17:50 HIV P24 Antigen Non react (Non React) 05/31/18 17:50
[2018-06-01] MEDS: ZITHROMAX 500 MG in NACL 0.9% 250ML 250 ML IV SCH (12:26)
[2018-06-01] MEDS: PEPCID PO SCH ×2 (12:29→22:00)
[2018-06-01] MEDS: FLEXERIL PO SCH (19:47)
[2018-06-01] MEDS: TORADOL IV PRN (19:47)
[2018-06-01] MEDS: SODIUM CHLORIDE FLUSH SYRINGE 10 ML IV PRN (19:51)
[2018-06-01] MEDS ORDERED: MEDROL PO SCH (22:00)
[2018-06-01] MEDS: TYLENOL PO PRN (23:39)
[2018-06-02] MEDS: TORADOL IV PRN ×3 (03:14→16:04)
[2018-06-02] MEDS: COZAAR PO SCH (10:13)
[2018-06-02] MEDS: PEPCID PO SCH (10:13)
[2018-06-02] MEDS: FLEXERIL PO SCH ×2 (10:14→14:03)
[2018-06-02] MEDS: COREG PO SCH (10:14)
[2018-06-02] MEDS: MEDROL PO SCH (10:15)
[2018-06-02] MEDS: HABITROL TD SCH (10:15)
[2018-06-02] MEDS: HumaLOG SUB-Q SCH ×3 (10:15→22:00)
[2018-06-02] MEDS: SODIUM CHLORIDE FLUSH SYRINGE 10 ML IV SCH (10:16)
[2018-06-02] MEDS: ROCEPHIN/NS 2 GM/100 ML 2 GM/100 ML BAG IV SCH (10:21)
[2018-06-02] MEDS: ZITHROMAX 500 MG in NACL 0.9% 250ML 250 ML IV SCH (10:32)
[2018-06-02] MEDS ORDERED: APRESOLINE IV PRN (15:21)
--- NOTE | 2018-06-02 15:22 | Progress Note ---
Assessment and Plan Assessment and plan: 78-year-old woman who presented with pleuritic chest pain CT angiogram of her chest is negative for PE, positive for right middle lobe pneumonia Problems Sepsis Pneumonia Hypertensive urgency Diabetes Nicotine abuse with dependence THC abuse cervical radiculopathy Plan IV fluids, antibiotics Optimize medications for chronic conditions Counseling about tobacco cessation Nicotine patches Counseling about THC cessation obtain ct c spine, pain meds, flexeril and medrol, improving DVT prophylaxis early ambulation History Interval history: Chest pain is improved She still having cough c/o neck pain, and decreased ROM, muscle spasms Review of systems Constitutional: No fevers, no malaise, no joint pains CVS: , no orthopnea, no dyspnea on exertion, no pedal edema GI: No abdominal pain, no diarrhea, no vomiting, no constipation Respiratory: No shortness of breath, no wheezing, Hospitalist Physical - Physical exam Narrative exam: General.: Appears well, no distress, nontoxic HEENT: Moist mucous membranes, extraocular muscles intact, no lymphadenopathy Neck: supple, decreased ROM on neck, turning neck is painful to patient Cardiac: S1-S2 heard Lungs: r lung crackles Abdomen: soft , nontender, nondistended, bowel sounds positive Extremities: no edema clubbing or cyanosis Skin: no rash or lesions Neurologic: no gross focal deficits Psych: calm, and cooperative - Constitutional Vitals: Temp Pulse Resp BP Pulse Ox 98.5 F 78 18 164/95 94 06/02/18 11:47 06/02/18 11:47 06/02/18 11:47 06/02/18 11:47 06/02/18 11:47 General appearance: Present: mild distress, obese Results - Labs CBC & Chem 7: 06/01/18 02:45 05/31/18 10:19 Labs: Laboratory Last Values WBC 21.8 K/mm3 (4.5-11.0) H 06/01/18 02:45 RBC 3.95 M/mm3 (3.65-5.03) 06/01/18 02:45 Hgb 12.0 gm/dl (10.1-14.3) 06/01/18 02:45 Hct 35.6 % (30.3-42.9) 06/01/18 02:45 MCV 90 fl (79-97) 06/01/18 02:45 MCH 30 pg (28-32) 06/01/18 02:45 MCHC 34 % (30-34) 06/01/18 02:45 RDW 14.2 % (13.2-15.2) 06/01/18 02:45 Plt Count 466 K/mm3 (140-440) H 06/01/18 02:45 Lymph % (Auto) 14.6 % (13.4-35.0) 05/31/18 10:19 [place] % (Auto) 10.2 % (0.0-7.3) H 05/31/18 10:19 Eos % (Auto) 1.8 % (0.0-4.3) 05/31/18 10:19 Baso % (Auto) 1.1 % (0.0-1.8) 05/31/18 10:19 Lymph # 2.8 K/mm3 (1.2-5.4) 05/31/18 10:19 [place] # 2.0 K/mm3 (0.0-0.8) H 05/31/18 10:19 Eos # 0.3 K/mm3 (0.0-0.4) 05/31/18 10:19 Baso # 0.2 K/mm3 (0.0-0.1) H 05/31/18 10:19 Add Manual Diff Complete 06/01/18 02:45 Total Counted 100 06/01/18 02:45 Seg Neutrophils % 72.3 % (40.0-70.0) H 05/31/18 10:19 Seg Neuts % (Manual) 78.0 % (40.0-70.0) H 06/01/18 02:45 Band Neutrophils % 5.0 % 06/01/18 02:45 Lymphocytes % (Manual) 17.0 % (13.4-35.0) 06/01/18 02:45 Reactive Lymphs % (Man) 0 % 06/01/18 02:45 Monocytes % (Manual) 0 % (0.0-7.3) 06/01/18 02:45 Eosinophils % (Manual) 0 % (0.0-4.3) 06/01/18 02:45 Basophils % (Manual) 0 % (0.0-1.8) 06/01/18 02:45 Metamyelocytes % 0 % 06/01/18 02:45 Myelocytes % 0 % 06/01/18 02:45 Promyelocytes % 0 % 06/01/18 02:45 Blast Cells % 0 % 06/01/18 02:45 Nucleated RBC % Not Reportable 06/01/18 02:45 Seg Neutrophils # 13.8 K/mm3 (1.8-7.7) H 05/31/18 10:19 Seg Neutrophils # Man 17.0 K/mm3 (1.8-7.7) H 06/01/18 02:45 Band Neutrophils # 1.1 K/mm3 06/01/18 02:45 Lymphocytes # (Manual) 3.7 K/mm3 (1.2-5.4) 06/01/18 02:45 Abs React Lymphs (Man) 0.0 K/mm3 06/01/18 02:45 Monocytes # (Manual) 0.0 K/mm3 (0.0-0.8) 06/01/18 02:45 Eosinophils # (Manual) 0.0 K/mm3 (0.0-0.4) 06/01/18 02:45 Basophils # (Manual) 0.0 K/mm3 (0.0-0.1) 06/01/18 02:45 Metamyelocytes # 0.0 K/mm3 06/01/18 02:45 Myelocytes # 0.0 K/mm3 06/01/18 02:45 Promyelocytes # 0.0 K/mm3 06/01/18 02:45 Blast Cells # 0.0 K/mm3 06/01/18 02:45 WBC Morphology Not Reportable 06/01/18 02:45 Hypersegmented Neuts Not Reportable 06/01/18 02:45 Hyposegmented Neuts Not Reportable 06/01/18 02:45 Hypogranular Neuts Not Reportable 06/01/18 02:45 Smudge Cells Not Reportable 06/01/18 02:45 Toxic Granulation Not Reportable 06/01/18 02:45 Toxic Vacuolation Not Reportable 06/01/18 02:45 Dohle Bodies Not Reportable 06/01/18 02:45 Pelger-Huet Anomaly Not Reportable 06/01/18 02:45 Artem Rods Not Reportable 06/01/18 02:45 Platelet Estimate Consistent w auto 06/01/18 02:45 Clumped Platelets Not Reportable 06/01/18 02:45 Plt Clumps, EDTA Not Reportable 06/01/18 02:45 Large Platelets Not Reportable 06/01/18 02:45 Giant Platelets Not Reportable 06/01/18 02:45 Platelet Satelliting Not Reportable 06/01/18 02:45 Plt Morphology Comment Not Reportable 06/01/18 02:45 RBC Morphology Not Reportable 06/01/18 02:45 Dimorphic RBCs Not Reportable 06/01/18 02:45 Polychromasia Not Reportable 06/01/18 02:45 Hypochromasia Not Reportable 06/01/18 02:45 Poikilocytosis Not Reportable 06/01/18 02:45 Anisocytosis Not Reportable 06/01/18 02:45 Microcytosis Not Reportable 06/01/18 02:45 Macrocytosis Not Reportable 06/01/18 02:45 Spherocytes Not Reportable 06/01/18 02:45 Pappenheimer Bodies Not Reportable 06/01/18 02:45 Sickle Cells Not Reportable 06/01/18 02:45 Target Cells Not Reportable 06/01/18 02:45 Tear Drop Cells Not Reportable 06/01/18 02:45 Ovalocytes Not Reportable 06/01/18 02:45 Helmet Cells Not Reportable 06/01/18 02:45 Johnson-[place] Bodies Not Reportable 06/01/18 02:45 [place] Rings Not Reportable 06/01/18 02:45 [place] Cells Not Reportable 06/01/18 02:45 Bite Cells Not Reportable 06/01/18 02:45 Crenated Cell Not Reportable 06/01/18 02:45 Elliptocytes Not Reportable 06/01/18 02:45 Acanthocytes (Spur) Not Reportable 06/01/18 02:45 Rouleaux Not Reportable 06/01/18 02:45 Hemoglobin C Crystals Not Reportable 06/01/18 02:45 Schistocytes Not Reportable 06/01/18 02:45 Malaria parasites Not Reportable 06/01/18 02:45 Santh[place] Bodies Not Reportable 06/01/18 02:45 Hem Pathologist Commnt No 06/01/18 02:45 D-Dimer 952.72 ng/mlDDU (0-234) H 05/31/18 10:19 Sodium 137 mmol/L (137-145) 05/31/18 10:19 Potassium 3.6 mmol/L (3.6-5.0) 05/31/18 10:19 Chloride 98.7 mmol/L (98-107) 05/31/18 10:19 Carbon Dioxide 22 mmol/L (22-30) 05/31/18 10:19 Anion Gap 20 mmol/L 05/31/18 10:19 BUN 15 mg/dL (7-17) 05/31/18 10:19 Creatinine 0.6 mg/dL (0.7-1.2) L 05/31/18 10:19 Estimated GFR > 60 ml/min 05/31/18 10:19 BUN/Creatinine Ratio 25 % 05/31/18 10:19 Glucose 102 mg/dL (65-100) H 05/31/18 10:19 POC Glucose 100 (70-105) 06/02/18 11:48 Lactic Acid 1.00 mmol/L (0.7-2.0) 06/01/18 02:45 Calcium 9.1 mg/dL (8.4-10.2) 05/31/18 10:19 Total Bilirubin 0.40 mg/dL (0.1-1.2) 05/31/18 10:19 AST 44 units/L (5-40) H 05/31/18 10:19 ALT 56 units/L (7-56) 05/31/18 10:19 Alkaline Phosphatase 188 units/L (35-129) H 05/31/18 10:19 Troponin T < 0.010 ng/mL (0.00-0.029) 05/31/18 11:20 Total Protein 7.7 g/dL (6.3-8.2) 05/31/18 10:19 Albumin 3.1 g/dL (3.9-5) L 05/31/18 10:19 Albumin/Globulin Ratio 0.7 % 05/31/18 10:19 Urine Color Yellow (Yellow) 05/31/18 12:31 Urine Turbidity Clear (Clear) 05/31/18 12:31 Urine pH 5.0 (5.0-7.0) 05/31/18 12:31 Ur Specific [place] 1.058 (1.003-1.030) H 05/31/18 12:31 Urine Protein 30 mg/dl mg/dL (Negative) 05/31/18 12:31 Urine Glucose (UA) Neg mg/dL (Negative) 05/31/18 12:31 Urine Ketones Neg mg/dL (Negative) 05/31/18 12:31 Urine Blood Mod (Negative) 05/31/18 12:31 Urine Nitrite Neg (Negative) 05/31/18 12:31 Urine Bilirubin Neg (Negative) 05/31/18 12:31 Urine Urobilinogen 4.0 mg/dL (<2.0) 05/31/18 12:31 Ur Leukocyte Esterase Neg (Negative) 05/31/18 12:31 Urine WBC (Auto) 4.0 /HPF (0.0-6.0) 05/31/18 12:31 Urine RBC (Auto) 9.0 /HPF (0.0-6.0) 05/31/18 12:31 U Epithel Cells (Auto) 6.0 /HPF (0-13.0) 05/31/18 12:31 Urine Bacteria (Auto) 1+ /HPF (Negative) 05/31/18 12:31 Urine Mucus 1+ /HPF 05/31/18 12:31 Urine HCG, Qual Negative (Negative) 05/31/18 12:31 Urine Opiates Screen Presumptive negative 05/31/18 12:37 Urine Methadone Screen Presumptive negative 05/31/18 12:37 Ur Barbiturates Screen Presumptive negative 05/31/18 12:37 Ur Phencyclidine Scrn Presumptive negative 05/31/18 12:37 Ur Amphetamines Screen Presumptive negative 05/31/18 12:37 U Benzodiazepines Scrn Presumptive negative 05/31/18 12:37 Urine Cocaine Screen Presumptive negative 05/31/18 12:37 U Marijuana (THC) Screen Presumptive positive 05/31/18 12:37 Drugs of Abuse Note Disclamer 05/31/18 12:37 HIV 1&2 Antibody Rapid Non react (Non React) 05/31/18 17:50 HIV P24 Antigen Non react (Non React) 05/31/18 17:50
[2018-06-02] MEDS ORDERED: NEURONTIN PO SCH (22:00)
[2018-06-02] MEDS ORDERED: NON-FORMULARY (Gabapentin [Neurontin] 600 MG) PO SCH (22:00)
--- NOTE | 2018-06-02 23:34 | Cat Scan Report ---
FINAL REPORT EXAM: CT CERVICAL SPINE WO CON HISTORY: neck pain TECHNIQUE: Axial helical imaging through the cervical spine with sagittal and coronal reformatted im ages obtained. Comparison: None FINDINGS: There is straightening of the normal lordotic curve of the cervical spine. The vertebral heights and disc spaces are maintained. 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 There is multiple level bony canal stenosis secondary to the ossification of the posterior longitudin al ligament. There is moderate to marked left foraminal stenosis at the C3-C4 level secondary to uncovertebral deg enerative change at this level. Visualization detail the contents of the cervical canal is significantly limited by artifact. There is no evidence of fracture or subluxation. The paraspinous soft tissues are unremarkable. IMPRESSION: 1. 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 2. Moderate to marked left foraminal stenosis C3-C4 level secondary to spondylitic change MRI would be helpful for further evaluation of the above findings.
[2018-06-03] MEDS: GLUCOPHAGE PO SCH ×3 (00:35→22:17)
[2018-06-03] MEDS: TORADOL IV PRN ×3 (00:35→21:30)
[2018-06-03] MEDS: NORMODYNE PO SCH ×4 (00:36→22:16)
[2018-06-03] MEDS: COREG PO SCH ×3 (00:37→22:16)
[2018-06-03] MEDS: FLEXERIL PO PRN ×2 (00:37→22:15)
[2018-06-03] MEDS: PEPCID PO SCH ×3 (00:39→22:15)
[2018-06-03] MEDS: SODIUM CHLORIDE FLUSH SYRINGE 10 ML IV SCH ×3 (00:39→21:51)
[2018-06-03] MEDS ORDERED: ZITHROMAX PO SCH (10:00)
[2018-06-03] MEDS: COZAAR PO SCH (10:35)
[2018-06-03] MEDS: HABITROL TD SCH (10:36)
[2018-06-03] MEDS: MEDROL PO SCH (10:36)
[2018-06-03] MEDS: ROCEPHIN/NS 2 GM/100 ML 2 GM/100 ML BAG IV SCH (10:40)
[2018-06-03] MEDS: HumaLOG SUB-Q SCH ×4 (10:55→22:17)
[2018-06-03] MEDS ORDERED: VANCOMYCIN PHARMACY TO DOSE IV SCH (14:00)
--- NOTE | 2018-06-03 15:20 | Consultation ---
History of Present Illness - Reason for Consult Consult date: 06/03/18 Staph bacteremia Requesting physician: TERRI ARMAS - History of Present Illness The patient is a 38-year-old female with hypertension, diabetes mellitus type 2, polycystic ovarian disease, active smoker, was at her baseline state of health until about 3 weeks ago when she started developing acute onset of right upper back pain. The pain got so severe that she had to be brought to the hospital and was hospitalized. She underwent an MRI of the thoracic spine with contrast which showed some thoracic spondylosis and a small left paracentral disc protrusion at T7-T8 without mass effect. She also had a CT abdomen and pelvis with contrast which was unremarkable. Hence was discharged home. She now again got readmitted on 05/31/2018 with right sided pleuritic chest pain, some shortness of breath as well as severe neck pain. She was noted to have a leukocytosis, blood cultures were drawn and returned positive for Staph aureus. Hence infectious diseases was consulted. She reports having fever, chills and night sweats also for the last 3 weeks. Had some mild nausea, vomiting prior to admission, none currently. She also reports a history of hidradenitis in bilateral axillary regions, most recent active lesion was about a month ago. She also used to be on doxycycline which cleared up her hidradenitis. Currently she has no active draining lesion though. Denies any leg weakness, no bowel or bladder issues. The patient is an active smoker, currently trying to cut down, drinks alcohol socially. She also occasionally smokes marijuana. She absolutely denies any IV drug use, when she was in her teens, she did smoke methamphetamine but again denied any snorting of drugs or intravenous drug use. 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 Denies lifting any heavy weights. Review of Systems: General: + fevers,chills and night sweats HEENT: no new visual disturbance Respiratory: slight cough, no sputum, hemoptysis Cardiovascular: Pleuritic chest pain +, no syncope Gastrointestinal: No nausea, vomiting or diarrhea Genitourinary: No dysuria or hematuria Musculoskeletal: + worsening neck pain / upper back pain Neurologic: No headaches, seizures Hematologic: No easy bruising or bleeding Endocrine: + night sweats, no acute weight loss Skin: negative for rash, jaundice Psychiatric: No suicidal or homicidal ideation Past History Past Medical History: diabetes, hypertension, other (PCOS) Past Surgical History: appendectomy Social history: single, smoking Family history: diabetes, hypertension Medications and Allergies Allergies Allergy/AdvReac Type Severity Reaction Status Date / Time No Known Allergies Allergy Verified 05/16/18 10:16 Home Medications Medication Instructions Recorded Confirmed Last Taken Type Carvedilol [Coreg] 6.25 mg PO BID #60 tablet 05/17/18 05/31/18 05/30/18 10:00 Rx Losartan [Cozaar] 100 mg PO QDAY #30 tablet 05/17/18 05/31/18 05/30/18 10:00 Rx metFORMIN [Glucophage] 500 mg PO BID #60 tablet 05/17/18 05/31/18 05/30/18 10:00 Rx Labetalol HCl 100 mg PO TID 06/01/18 06/01/18 Unknown History Amoxicillin/Potassium Clav 1 each PO BID #8 tablet 06/03/18 Unknown Rx [Augmentin 875-125 Tablet] Azithromycin 250 mg PO DAILY #1 tablet 06/03/18 Unknown Rx Cyclobenzaprine [Flexeril 10 MG 10 mg PO Q8H PRN #30 tablet 06/03/18 Unknown Rx TAB] Ketorolac [Toradol] 20 mg PO Q6H PRN #20 tablet 06/03/18 Unknown Rx Nicotine [Habitrol] 21 mg TD QDAY #30 patch 06/03/18 Unknown Rx methylPREDNISolone [Medrol] 4 mg PO DAILY #1 tab.ds.pk 06/03/18 Unknown Rx oxyCODONE [Roxicodone TAB] 10 mg PO Q6HR PRN #20 tablet 06/03/18 Unknown Rx Active Meds: Active Medications Acetaminophen (Tylenol) 650 mg PO Q4H PRN PRN Reason: Pain MILD(1-3)/Fever >100.5/WHITT Last Admin: 06/01/18 23:39 Dose: 650 mg Documented by: Albuterol (Proventil) 2.5 mg IH Q4HRT PRN PRN Reason: Shortness Of Breath Azithromycin (Zithromax) 500 mg PO QDAY [facility] Stop: 06/05/18 12:59 Last Admin: 06/03/18 10:35 Dose: 500 mg Documented by: Carvedilol (Coreg) 6.25 mg PO BID [facility] Last Admin: 06/03/18 10:36 Dose: 6.25 mg Documented by: Cyclobenzaprine HCl (Flexeril) 5 mg PO Q8H PRN PRN Reason: Muscle Spasm Last Admin: 06/03/18 00:37 Dose: 5 mg Documented by: Dextrose (D50w (25gm) Syringe) 50 ml IV PRN PRN PRN Reason: Hypoglycemia Famotidine (Pepcid) 20 mg PO BID [facility] Last Admin: 06/03/18 10:36 Dose: 20 mg Documented by: Gabapentin (Neurontin) 600 mg PO BID PRN PRN Reason: Pain, Moderate (4-6) Last Admin: 06/01/18 09:20 Dose: 600 mg Documented by: Guaifenesin (Guaifenesin Dm Syrup) 10 ml PO Q4H PRN PRN Reason: Cough Last Admin: 06/01/18 09:21 Dose: 10 ml Documented by: Hydralazine HCl (Apresoline) 10 mg IV Q4HR PRN PRN Reason: BP >160/100 Ceftriaxone Sodium (Rocephin/Ns 2 Gm/100 Ml) 2 gm in 100 mls @ 200 mls/hr IV Q24HR [facility]; Protocol Last Admin: 06/03/18 10:40 Dose: 200 mls/hr Documented by: Insulin Human Lispro (Humalog) 0 unit SUB-Q ACHS [facility]; Protocol Last Admin: 06/03/18 10:55 Dose: Not Given Documented by: Ketorolac Tromethamine (Toradol) 30 mg IV Q6H PRN PRN Reason: Pain, Moderate (4-6) Stop: 06/06/18 16:16 Last Admin: 06/03/18 10:39 Dose: 30 mg Documented by: Labetalol HCl (Normodyne) 100 mg PO TID [facility] Last Admin: 06/03/18 11:00 Dose: 100 mg Documented by: Losartan Potassium (Cozaar) 100 mg PO QDAY [facility] Last Admin: 06/03/18 10:35 Dose: 100 mg Documented by: Metformin HCl (Glucophage) 500 mg PO BID [facility] Last Admin: 06/03/18 10:35 Dose: 500 mg Documented by: Methylprednisolone (Medrol) 4 mg PO QDAY [facility] Last Admin: 06/03/18 10:36 Dose: 4 mg Documented by: Nicotine (Habitrol) 21 mg TD QDAY [facility] Last Admin: 06/03/18 10:36 Dose: 21 mg Documented by: Ondansetron HCl (Zofran) 4 mg IV Q8H PRN PRN Reason: Nausea And Vomiting Last Admin: 06/01/18 12:29 Dose: 4 mg Documented by: Sodium Chloride (Sodium Chloride Flush Syringe 10 Ml) 10 ml IV BID [facility] Last Admin: 06/03/18 10:55 Dose: 10 ml Documented by: Sodium Chloride (Sodium Chloride Flush Syringe 10 Ml) 10 ml IV PRN PRN PRN Reason: LINE FLUSH Last Admin: 06/01/18 19:51 Dose: 10 ml Documented by: Physical Examination - Physical Exam Narrative exam: Physical Exam: Constitutional: Alert, cooperative. No acute distress Head, Ears, Nose: Normocephalic, atraumatic. External ears, nose normal Eyes: Conjunctivae/corneas clear. No icterus. No ptosis. Neck: Supple, no meningeal signs. Tenderness at the cervicothoracic spine junction, no bulge seen, no abscess Oral: no thrush Cardiovascular: S1, S2 normal. Respiratory: Good air entry, clear to auscultation bilaterally GI: Soft, non-tender; bowel sounds normal. No peritoneal signs Musculoskeletal: No pedal edema, no cyanosis. Skin: No rash or abscess. B/L axillary regions with hyperpigmented areas consistent with hidradenitis, no active lesion with drainage Hem/Lymphatic: No palpable cervical or supraclavicular nodes. No lymphangitis Psych: Mood ok. Affect normal Neurological: Awake, alert, oriented. No gross abnormality. No weakness - Constitutional Vitals: Vital Signs Temp Pulse Resp BP Pulse Ox 99.0 F 84 16 150/104 98 06/03/18 11:30 06/03/18 11:30 06/03/18 11:30 06/03/18 11:30 06/03/18 11:30 Temperature -Last 24 Hours Temperature 99.0 F Temperature 98.5 F Temperature 98.3 F Results - Labs CBC & Chem 7: 06/01/18 02:45 05/31/18 10:19 Labs: Abnormal lab results 06/02/18 06/03/18 Range/Units 18:09 12:54 POC Glucose 127 H 110 H (70-105) CT spine: CT cervical spine with contrast showed spondylytic change at C3-C4 level. - Imaging and Cardiology Chest x-ray: report reviewed, image reviewed (Chest x-ray shows no evidence of pneumonia) CT scan - chest: report reviewed, image reviewed (CT chest showed no pulmonary embolism. It showed a small subtle right inferior lobe infiltrate.) Assessment and Plan Cultures: 05/31/2018 blood culture: Staph aureus, susceptibilities pending A/P: 38-year-old female with hypertension, diabetes mellitus type 2, polycystic ovarian disease, active smoker, hidradenitis admitted with back pain, found to have: 1) Sepsis likely secondary to Staph aureus bacteremia: Source seems unclear but could be related to 104 hidradenitis lesions although currently she has no active lesion. She does have severe neck and upper back pain. This has been evaluated with a recent MRI. Agree with getting an MRI of the cervical spine with contrast. She may have had a prior bacteremic seeding now leading to a secondary bacteremia. 2) H/O substance abuse Recs: Add IV vancomycin Ceftriaxone and azithromycin discontinued Repeat blood cultures to ensure clearance F/U ID and sensitivity data on Staph aureus Transthoracic echocardiogram ordered Agree with MRI cervical spine contrast to evaluate for any discitis or osteomyelitis We can hold off on MRI of the thoracic spine since she recently had one, also the CT chest this admission evaluated the thoracic spine D/W Dr. Armas. MD [facility] C: [phone] O: [phone] F: [phone]
[2018-06-03] MEDS ORDERED: VANCOMYCIN 1,750 MG in NACL 0.9% 500 ML 500 ML IV ONE (15:30)
--- NOTE | 2018-06-03 15:53 | Progress Note ---
Assessment and Plan Assessment and plan: 38-year-old woman who presented with pleuritic chest pain CT angiogram of her chest is negative for PE, positive for right middle lobe pneumonia Problems Sepsis Pneumonia Hypertensive urgency Diabetes Nicotine abuse with dependence THC abuse cervical radiculopathy Plan IV fluids, antibiotics Optimize medications for chronic conditions Counseling about tobacco cessation Nicotine patches Counseling about THC cessation MR [place] spine pending, BC de SA, ID consulted DVT prophylaxis early ambulation History Interval history: Chest pain is improved She still having cough c/o neck pain, and decreased ROM, muscle spasms Review of systems Constitutional: No fevers, no malaise, no joint pains CVS: , no orthopnea, no dyspnea on exertion, no pedal edema GI: No abdominal pain, no diarrhea, no vomiting, no constipation Respiratory: No shortness of breath, no wheezing, Hospitalist Physical - Physical exam Narrative exam: General.: Appears well, no distress, nontoxic HEENT: Moist mucous membranes, extraocular muscles intact, no lymphadenopathy Neck: supple, decreased ROM on neck, turning neck is painful to patient Cardiac: S1-S2 heard Lungs: r lung crackles Abdomen: soft , nontender, nondistended, bowel sounds positive Extremities: no edema clubbing or cyanosis Skin: no rash or lesions Neurologic: no gross focal deficits Psych: calm, and cooperative - Constitutional Vitals: Temp Pulse Resp BP Pulse Ox 99.0 F 84 16 150/104 98 06/03/18 11:30 06/03/18 11:30 06/03/18 11:30 06/03/18 11:30 06/03/18 11:30 General appearance: Present: mild distress, obese Results - Labs CBC & Chem 7: 06/01/18 02:45 05/31/18 10:19 Labs: Laboratory Last Values WBC 21.8 K/mm3 (4.5-11.0) H 06/01/18 02:45 RBC 3.95 M/mm3 (3.65-5.03) 06/01/18 02:45 Hgb 12.0 gm/dl (10.1-14.3) 06/01/18 02:45 Hct 35.6 % (30.3-42.9) 06/01/18 02:45 MCV 90 fl (79-97) 06/01/18 02:45 MCH 30 pg (28-32) 06/01/18 02:45 MCHC 34 % (30-34) 06/01/18 02:45 RDW 14.2 % (13.2-15.2) 06/01/18 02:45 Plt Count 466 K/mm3 (140-440) H 06/01/18 02:45 Lymph % (Auto) 14.6 % (13.4-35.0) 05/31/18 10:19 [place] % (Auto) 10.2 % (0.0-7.3) H 05/31/18 10:19 Eos % (Auto) 1.8 % (0.0-4.3) 05/31/18 10:19 Baso % (Auto) 1.1 % (0.0-1.8) 05/31/18 10:19 Lymph # 2.8 K/mm3 (1.2-5.4) 05/31/18 10:19 [place] # 2.0 K/mm3 (0.0-0.8) H 05/31/18 10:19 Eos # 0.3 K/mm3 (0.0-0.4) 05/31/18 10:19 Baso # 0.2 K/mm3 (0.0-0.1) H 05/31/18 10:19 Add Manual Diff Complete 06/01/18 02:45 Total Counted 100 06/01/18 02:45 Seg Neutrophils % 72.3 % (40.0-70.0) H 05/31/18 10:19 Seg Neuts % (Manual) 78.0 % (40.0-70.0) H 06/01/18 02:45 Band Neutrophils % 5.0 % 06/01/18 02:45 Lymphocytes % (Manual) 17.0 % (13.4-35.0) 06/01/18 02:45 Reactive Lymphs % (Man) 0 % 06/01/18 02:45 Monocytes % (Manual) 0 % (0.0-7.3) 06/01/18 02:45 Eosinophils % (Manual) 0 % (0.0-4.3) 06/01/18 02:45 Basophils % (Manual) 0 % (0.0-1.8) 06/01/18 02:45 Metamyelocytes % 0 % 06/01/18 02:45 Myelocytes % 0 % 06/01/18 02:45 Promyelocytes % 0 % 06/01/18 02:45 Blast Cells % 0 % 06/01/18 02:45 Nucleated RBC % Not Reportable 06/01/18 02:45 Seg Neutrophils # 13.8 K/mm3 (1.8-7.7) H 05/31/18 10:19 Seg Neutrophils # Man 17.0 K/mm3 (1.8-7.7) H 06/01/18 02:45 Band Neutrophils # 1.1 K/mm3 06/01/18 02:45 Lymphocytes # (Manual) 3.7 K/mm3 (1.2-5.4) 06/01/18 02:45 Abs React Lymphs (Man) 0.0 K/mm3 06/01/18 02:45 Monocytes # (Manual) 0.0 K/mm3 (0.0-0.8) 06/01/18 02:45 Eosinophils # (Manual) 0.0 K/mm3 (0.0-0.4) 06/01/18 02:45 Basophils # (Manual) 0.0 K/mm3 (0.0-0.1) 06/01/18 02:45 Metamyelocytes # 0.0 K/mm3 06/01/18 02:45 Myelocytes # 0.0 K/mm3 06/01/18 02:45 Promyelocytes # 0.0 K/mm3 06/01/18 02:45 Blast Cells # 0.0 K/mm3 06/01/18 02:45 WBC Morphology Not Reportable 06/01/18 02:45 Hypersegmented Neuts Not Reportable 06/01/18 02:45 Hyposegmented Neuts Not Reportable 06/01/18 02:45 Hypogranular Neuts Not Reportable 06/01/18 02:45 Smudge Cells Not Reportable 06/01/18 02:45 Toxic Granulation Not Reportable 06/01/18 02:45 Toxic Vacuolation Not Reportable 06/01/18 02:45 Dohle Bodies Not Reportable 06/01/18 02:45 Pelger-Huet Anomaly Not Reportable 06/01/18 02:45 Artem Rods Not Reportable 06/01/18 02:45 Platelet Estimate Consistent w auto 06/01/18 02:45 Clumped Platelets Not Reportable 06/01/18 02:45 Plt Clumps, EDTA Not Reportable 06/01/18 02:45 Large Platelets Not Reportable 06/01/18 02:45 Giant Platelets Not Reportable 06/01/18 02:45 Platelet Satelliting Not Reportable 06/01/18 02:45 Plt Morphology Comment Not Reportable 06/01/18 02:45 RBC Morphology Not Reportable 06/01/18 02:45 Dimorphic RBCs Not Reportable 06/01/18 02:45 Polychromasia Not Reportable 06/01/18 02:45 Hypochromasia Not Reportable 06/01/18 02:45 Poikilocytosis Not Reportable 06/01/18 02:45 Anisocytosis Not Reportable 06/01/18 02:45 Microcytosis Not Reportable 06/01/18 02:45 Macrocytosis Not Reportable 06/01/18 02:45 Spherocytes Not Reportable 06/01/18 02:45 Pappenheimer Bodies Not Reportable 06/01/18 02:45 Sickle Cells Not Reportable 06/01/18 02:45 Target Cells Not Reportable 06/01/18 02:45 Tear Drop Cells Not Reportable 06/01/18 02:45 Ovalocytes Not Reportable 06/01/18 02:45 Helmet Cells Not Reportable 06/01/18 02:45 Johnson-Makanda Bodies Not Reportable 06/01/18 02:45 [place] Rings Not Reportable 06/01/18 02:45 [place] Cells Not Reportable 06/01/18 02:45 Bite Cells Not Reportable 06/01/18 02:45 Crenated Cell Not Reportable 06/01/18 02:45 Elliptocytes Not Reportable 06/01/18 02:45 Acanthocytes (Spur) Not Reportable 06/01/18 02:45 Rouleaux Not Reportable 06/01/18 02:45 Hemoglobin C Crystals Not Reportable 06/01/18 02:45 Schistocytes Not Reportable 06/01/18 02:45 Malaria parasites Not Reportable 06/01/18 02:45 Santhosh Bodies Not Reportable 06/01/18 02:45 Hem Pathologist Commnt No 06/01/18 02:45 D-Dimer 952.72 ng/mlDDU (0-234) H 05/31/18 10:19 Sodium 137 mmol/L (137-145) 05/31/18 10:19 Potassium 3.6 mmol/L (3.6-5.0) 05/31/18 10:19 Chloride 98.7 mmol/L (98-107) 05/31/18 10:19 Carbon Dioxide 22 mmol/L (22-30) 05/31/18 10:19 Anion Gap 20 mmol/L 05/31/18 10:19 BUN 15 mg/dL (7-17) 05/31/18 10:19 Creatinine 0.6 mg/dL (0.7-1.2) L 05/31/18 10:19 Estimated GFR > 60 ml/min 05/31/18 10:19 BUN/Creatinine Ratio 25 % 05/31/18 10:19 Glucose 102 mg/dL (65-100) H 05/31/18 10:19 POC Glucose 110 (70-105) H 06/03/18 12:54 Lactic Acid 1.00 mmol/L (0.7-2.0) 06/01/18 02:45 Calcium 9.1 mg/dL (8.4-10.2) 05/31/18 10:19 Total Bilirubin 0.40 mg/dL (0.1-1.2) 05/31/18 10:19 AST 44 units/L (5-40) H 05/31/18 10:19 ALT 56 units/L (7-56) 05/31/18 10:19 Alkaline Phosphatase 188 units/L (35-129) H 05/31/18 10:19 Troponin T < 0.010 ng/mL (0.00-0.029) 05/31/18 11:20 Total Protein 7.7 g/dL (6.3-8.2) 05/31/18 10:19 Albumin 3.1 g/dL (3.9-5) L 05/31/18 10:19 Albumin/Globulin Ratio 0.7 % 05/31/18 10:19 Urine Color Yellow (Yellow) 05/31/18 12:31 Urine Turbidity Clear (Clear) 05/31/18 12:31 Urine pH 5.0 (5.0-7.0) 05/31/18 12:31 Ur Specific [place] 1.058 (1.003-1.030) H 05/31/18 12:31 Urine Protein 30 mg/dl mg/dL (Negative) 05/31/18 12:31 Urine Glucose (UA) Neg mg/dL (Negative) 05/31/18 12:31 Urine Ketones Neg mg/dL (Negative) 05/31/18 12:31 Urine Blood Mod (Negative) 05/31/18 12:31 Urine Nitrite Neg (Negative) 05/31/18 12:31 Urine Bilirubin Neg (Negative) 05/31/18 12:31 Urine Urobilinogen 4.0 mg/dL (<2.0) 05/31/18 12:31 Ur Leukocyte Esterase Neg (Negative) 05/31/18 12:31 Urine WBC (Auto) 4.0 /HPF (0.0-6.0) 05/31/18 12:31 Urine RBC (Auto) 9.0 /HPF (0.0-6.0) 05/31/18 12:31 U Epithel Cells (Auto) 6.0 /HPF (0-13.0) 05/31/18 12:31 Urine Bacteria (Auto) 1+ /HPF (Negative) 05/31/18 12:31 Urine Mucus 1+ /HPF 05/31/18 12:31 Urine HCG, Qual Negative (Negative) 05/31/18 12:31 Urine Opiates Screen Presumptive negative 05/31/18 12:37 Urine Methadone Screen Presumptive negative 05/31/18 12:37 Ur Barbiturates Screen Presumptive negative 05/31/18 12:37 Ur Phencyclidine Scrn Presumptive negative 05/31/18 12:37 Ur Amphetamines Screen Presumptive negative 05/31/18 12:37 U Benzodiazepines Scrn Presumptive negative 05/31/18 12:37 Urine Cocaine Screen Presumptive negative 05/31/18 12:37 U Marijuana (THC) Screen Presumptive positive 05/31/18 12:37 Drugs of Abuse Note Disclamer 05/31/18 12:37 HIV 1&2 Antibody Rapid Non react (Non React) 05/31/18 17:50 HIV P24 Antigen Non react (Non React) 05/31/18 17:50
--- NOTE | 2018-06-03 17:35 | Magnetic Resonance Report ---
FINAL REPORT EXAM: MR CERVICAL SPINE WO/W CON HISTORY: neck pain and staph bacteremiainpatient TECHNIQUE: Pre gadolinium T1 and T2 weighted sagittal and axial and following IV administration of g adolinium T1 weighted fat saturated sagittal and axial images of the cervical spine were obtained. Comparison: CT cervical spine dated June 02, 2018. FINDINGS: Visualization detail on some of the sequences is limited by motion artifact. The study remains of sebastian gnostic quality. Marrow signal and bony alignment are normal. The vertebral heights and disc spaces are maintained. There is multiple level the canal stenosis secondary to spondylitic change and ossification of the po sterior longitudinal ligament as was demonstrated on the recent CT. There is abnormal enhancement in the anterior epidural space that extends from the inferior aspect of C2 into the visualized portion of the thoracic canal. There is an abnormal the collection that is de creased signal on T1 and increased signal on T2 with marginal enhancement on post gadolinium imaging. This extends from the superior aspect of C7 into upper thoracic canal. The cervical cord appears to be normal signal. There is impingement on the anterior aspect of the cer vical cord by the abnormal collection which is likely an epidural abscess and the ossification of the posterior longitudinal ligament. There is no evidence of abnormal enhancement within the cervical cord. The paraspinous soft tissues are unremarkable. IMPRESSION: 1. Findings consistent with anterior epidural abscess in the lower cervical and the thoracic canal. T he most inferior aspect in the thoracic canal is not imaged with this study. 2. Abnormal enhancement in the anterior epidural space that extends from the inferior aspect of C2 in feriorly to the visualized portion of the thoracic canal. 3. Impingement on the anterior aspect of the cervical cord by spondylitic change and anterior epidura l abscess. Recommend emergent referral to neurosurgery for further evaluation and treatment of the epidural absc ess. The finding of epidural abscess and recommendation for emergent referral to neurosurgery was discusse d with the patient's nurse, RODRIGUEZ Lima, at 5:30 p.m. June 03, 2018.
[2018-06-03] MEDS: SODIUM CHLORIDE FLUSH SYRINGE 10 ML IV PRN (22:16)
[2018-06-04] MEDS: TORADOL IV PRN ×2 (03:19→10:30)
[2018-06-04] MEDS ORDERED: VANCOMYCIN 1,250 MG in NACL 0.9% 250ML 250 ML IV SCH (03:30)
[2018-06-04 06:14] VITALS: BP 139/69
[2018-06-04] MEDS: GLUCOPHAGE PO SCH ×2 (10:29→10:34)
[2018-06-04] MEDS: COZAAR PO SCH (10:29)
[2018-06-04] MEDS: PEPCID PO SCH (10:29)
[2018-06-04] MEDS: HABITROL TD SCH (10:29)
[2018-06-04] MEDS: COREG PO SCH (10:29)
[2018-06-04] MEDS: MEDROL PO SCH (10:29)
[2018-06-04] MEDS: NORMODYNE PO SCH (10:31)
[2018-06-04] MEDS: SODIUM CHLORIDE FLUSH SYRINGE 10 ML IV SCH (10:34)
--- NOTE | 2018-06-04 18:17 | Discharge Summary ---
Providers - Providers Date of Admission: 05/31/18 17:21 Attending physician: TERRI TYSON MD 06/03/18 13:52 Consult to Physician [CONS] Routine Comment: Consulting Provider: YULIA MARTI Physician Instructions: Reason For Exam: staph bacteremia Primary care physician: JUVENILE COUNSELOR Hospitalization Condition: Stable Hospital course: 38-year-old woman who presented with pleuritic chest pain. She was complaining of cough. She was diagnosed with right middle lobe pneumonia was treated with antibiotics. While in hospital she had fevers and worsening neck pain and reduced range of motion of her neck. Her blood cultures grew staph aureus. She then went on to have an MRI of her cervical spine which is consistent with epidural abscess. Therefore she was transferred to [place], where she will have neurosurgery evaluation for possible drainage of the abscess. She was counseled on nicotine and THC cessation, and medication optimized for her high blood pressure. CT angiogram of her chest is negative for PE, positive for right middle lobe pneumonia Problems Sepsis Pneumonia Hypertensive urgency Diabetes Nicotine abuse with dependence THC abuse Cervical spine epidural abscess Staph aureus bacteremia [facility]: [id number] IP Time spent for discharge: 33 mins Core Measure Documentation - Palliative Care Palliative Care/ Comfort Measures: Not Applicable - Core Measures Any of the following diagnoses?: none Exam - Physical Exam Narrative exam: General.: Appears well, no distress, nontoxic HEENT: Moist mucous membranes, extraocular muscles intact, no lymphadenopathy Neck: supple, decreased ROM on neck, turning neck is painful to patient Cardiac: S1-S2 heard Lungs: r lung crackles Abdomen: soft , nontender, nondistended, bowel sounds positive Extremities: no edema clubbing or cyanosis Skin: no rash or lesions Neurologic: no gross focal deficits Psych: calm, and cooperative - Constitutional Vitals: Temp Pulse Resp BP Pulse Ox 98.2 F 70 24 139/69 96 06/04/18 05:05 06/04/18 05:05 06/04/18 05:05 06/04/18 05:05 06/04/18 05:05 Plan Follow up with: CHRIS ORTIZ MD [Referring] - 3-5 Days Prescriptions: Amoxicillin/Potassium Clav [Augmentin 875-125 Tablet] 1 each PO BID #8 tablet Azithromycin 250 mg PO DAILY #1 tablet Cyclobenzaprine [Flexeril 10 MG TAB] 10 mg PO Q8H PRN #30 tablet PRN Reason: Muscle Spasm Ketorolac [Toradol] 20 mg PO Q6H PRN #20 tablet PRN Reason: Pain methylPREDNISolone [Medrol] 4 mg PO DAILY #1 tab.ds.pk Nicotine [Habitrol] 21 mg TD QDAY #30 patch oxyCODONE [Roxicodone TAB] 10 mg PO Q6HR PRN #20 tablet PRN Reason: Pain
== END 2018-06-04 11:40 | disposition short-term general hospital (02) | DRG 871 ==
LOC: ED 08:39 → 3A 17:21
PROVIDERS: ADMIT Internal Medicine; ATTEND Internal Medicine
DX: A41.9 Sepsis, unspecified organism (principal); J18.1 Lobar pneumonia, unspecified organism; F17.213 Nicotine dependence, cigarettes, with withdrawal; I10 Essential (primary) hypertension; F17.210 Nicotine dependence, cigarettes, uncomplicated; E11.9 Type 2 diabetes mellitus without complications; R07.81 Pleurodynia; E66.9 Obesity, unspecified; M54.12 Radiculopathy, cervical region; F12.10 Cannabis abuse, uncomplicated; I16.0 Hypertensive urgency; Z79.84 Long term (current) use of oral hypoglycemic drugs; Z90.49 Acquired absence of other specified parts of digestive tract; Z68.31 Body mass index [BMI] 31.0-31.9, adult; Z82.49 Family history of ischemic heart disease and other diseases of the circulatory system; Z83.3 Family history of diabetes mellitus
CPT/HCPCS: 36415; 71046; 71275; 72125; 72156; 80053; 80307; 81001; 81025; 82140; 82962; 84484; 85007; 85025; 85379; 87040; 87076; 87186; 87806; 93005; 93010; 93306; 94640; 96365; 96375; 99406; G0378; A9577; J0360; J0456; J0692; J0696; J1170; J1885; J2270; J2405; J3370; J7030; J7040; J7050; J7509; Q9967

== ENCOUNTER 2018-06-11 15:08 | Inpatient (IN) | payer SELFPAY ==
[2018-06-11] MEDS ORDERED: SODIUM CHLORIDE FLUSH SYRINGE 10 ML IV PRN (20:18)
[2018-06-11] MEDS ORDERED: PROVENTIL IH PRN (20:18)
[2018-06-11] MEDS ORDERED: TYLENOL PO PRN (20:18)
[2018-06-11] MEDS ORDERED: PERCOCET 5/325 PO PRN (20:18)
[2018-06-11] MEDS ORDERED: ZOFRAN IV PRN (20:18)
--- NOTE | 2018-06-11 20:24 | History and Physical Report ---
History of Present Illness Chief complaint: My back hurts History of present illness: 38 YO Female with Obesity, Nicotine Dependence, HTN, PCOS admitted directly to [facility] for further care. Pt readmitted to [facility] after patient was transferred to [facility] for treatment of Epidural Abscess. Pt seen and evalu ated upon arrival. Pt denies fever, chills, CP, Palpitations, NVD, Trauma, recent ill contacts. No reported nursing events en route to hospital. Pt restarted on Iv antibiotic therapy. Past History Past Medical History: diabetes, hypertension, other (PCOS) Past Surgical History: Other (Epidural Abscess) Social history: single, smoking Family history: diabetes, hypertension Medications and Allergies Allergies Allergy/AdvReac Type Severity Reaction Status Date / Time No Known Allergies Allergy Verified 05/16/18 10:16 Home Medications Medication Instructions Recorded Confirmed Last Taken Type Carvedilol [Coreg] 6.25 mg PO BID #60 tablet 05/17/18 05/31/18 05/30/18 10:00 Rx Losartan [Cozaar] 100 mg PO QDAY #30 tablet 05/17/18 05/31/18 05/30/18 10:00 Rx metFORMIN [Glucophage] 500 mg PO BID #60 tablet 05/17/18 05/31/18 05/30/18 10:00 Rx Labetalol HCl 100 mg PO TID 06/01/18 06/01/18 Unknown History Amoxicillin/Potassium Clav 1 each PO BID #8 tablet 06/03/18 Unknown Rx [Augmentin 875-125 Tablet] Azithromycin 250 mg PO DAILY #1 tablet 06/03/18 Unknown Rx Cyclobenzaprine [Flexeril 10 MG 10 mg PO Q8H PRN #30 tablet 06/03/18 Unknown Rx TAB] Ketorolac [Toradol] 20 mg PO Q6H PRN #20 tablet 06/03/18 Unknown Rx Nicotine [Habitrol] 21 mg TD QDAY #30 patch 06/03/18 Unknown Rx methylPREDNISolone [Medrol] 4 mg PO DAILY #1 tab.ds.pk 06/03/18 Unknown Rx oxyCODONE [Roxicodone TAB] 10 mg PO Q6HR PRN #20 tablet 06/03/18 Unknown Rx Active Meds: Active Medications Acetaminophen (Tylenol) 650 mg PO Q4H PRN PRN Reason: Pain MILD(1-3)/Fever >100.5/WHITT Albuterol (Proventil) 2.5 mg IH Q4HRT PRN PRN Reason: Shortness Of Breath Ondansetron HCl (Zofran) 4 mg IV Q8H PRN PRN Reason: Nausea And Vomiting Oxycodone/Acetaminophen (Percocet 5/325) 1 tab PO Q6H PRN PRN Reason: Pain, Moderate (4-6) Sodium Chloride (Sodium Chloride Flush Syringe 10 Ml) 10 ml IV BID NAVI Sodium Chloride (Sodium Chloride Flush Syringe 10 Ml) 10 ml IV PRN PRN PRN Reason: LINE FLUSH Review of Systems Constitutional: no weight loss, no weight gain, no fever, no chills Ears, nose, mouth and throat: no ear pain, no ear discharge, no tinnitis, no decreased hearing, no nose pain, no nasal congestion Breasts: no change in shape, no swelling, no mass Cardiovascular: no chest pain, no orthopnea, no palpitations, no rapid/irregular heart beat, no edema, no syncope Respiratory: no cough, no cough with sputum, no excessive sputum, no hemoptysis Gastrointestinal: no nausea, no vomiting, no diarrhea, no constipation, no change in bowel habits Genitourinary Female: no dysmenorrhea, no pelvic pain, no flank pain, no menorrhagia Rectal: no pain, no incontinence, no bleeding Musculoskeletal: no shooting arm pain Integumentary: no rash, no pruritis, no redness, no wounds, no boils Psychiatric: no anxiety, no memory loss, no sleep disturbances, no change in ap petite, no change in libido Endocrine: no cold intolerance, no heat intolerance, no polyuria Hematologic/Lymphatic: no easy bruising, no easy bleeding, no lymphadenopathy Allergic/Immunologic: no urticaria, no wheezing, no persistent infections, no anaphylaxis, no angioedema Exam - Constitutional General appearance: Present: no acute distress, obese - EENT Eyes: Present: PERRL ENT: hearing intact, clear oral mucosa - Neck Neck: Present: supple, normal ROM - Respiratory Respiratory effort: normal Respiratory: bilateral: CTA - Cardiovascular Heart Sounds: Present: S1 & S2. Absent: rub, click - Extremities Extremities: pulses symmetrical, No edema Peripheral Pulses: within normal limits - Abdominal General gastrointestinal: Present: soft, non-tender, non-distended, normal bowel sounds Female genitourinary: Present: normal - Integumentary Integumentary: Present: clear, warm, dry - Musculoskeletal Musculoskeletal: gait normal, strength equal bilaterally - Psychiatric Psychiatric: appropriate mood/affect, intact judgment & insight - Neurologic Neurologic: CNII-XII intact, moves all extremities Assessment and Plan - Patient Problems (1) Epidural abscess Status: Acute Plan to address problem: IV antibiotic therapy, Previously ordered, CBC, CMP, Admit to medical floor, pain control (2) DVT prophylaxis Status: Acute Plan to address problem: scd to ble while in bed
[2018-06-11 23:06] LABS: Basophils # (Auto) 0.1 K/mm3 (0.0-0.1); Basophils % (Auto) 0.6 % (0.0-1.8); Eosinophils # (Auto) 0.8 K/mm3 (0.0-0.4); Hematocrit 30.6 % (30.3-42.9); Hemoglobin 10.1 gm/dl (10.1-14.3); Lymphocytes # (Auto) 4.3 K/mm3 (1.2-5.4); Lymphocytes % (Auto) 25.5 % (13.4-35.0); Mean Corpuscular HGB Conc 33 % (30-34); Mean Corpuscular Volume 91 fl (79-97); Monocytes # (Auto) 1.8 K/mm3 (0.0-0.8); Monocytes % (Auto) 10.5 % (0.0-7.3); Platelet Count 636 K/mm3 (140-440); Red Blood Count 3.35 M/mm3 (3.65-5.03); Red Cell Distribution Width 13.9 % (13.2-15.2)
[2018-06-11 23:17] LABS: Calcium 9.7 mg/dL (8.4-10.2)
[2018-06-11] MEDS: SODIUM CHLORIDE FLUSH SYRINGE 10 ML IV SCH (23:34)
[2018-06-12] MEDS: PERCOCET 5/325 PO PRN ×5 (02:26→18:32)
[2018-06-12 05:58] LABS: Basophils # (Auto) 0.2 K/mm3 (0.0-0.1); Eosinophils # (Auto) 0.8 K/mm3 (0.0-0.4); Eosinophils % (Auto) 4.8 % (0.0-4.3); Hematocrit 29.5 % (30.3-42.9); Hemoglobin 9.9 gm/dl (10.1-14.3); Lymphocytes # (Auto) 3.9 K/mm3 (1.2-5.4); Lymphocytes % (Auto) 23.2 % (13.4-35.0); Mean Corpuscular HGB Conc 34 % (30-34); Mean Corpuscular Volume 91 fl (79-97); Monocytes # (Auto) 1.9 K/mm3 (0.0-0.8); Monocytes % (Auto) 11.2 % (0.0-7.3); Platelet Count 612 K/mm3 (140-440); Red Blood Count 3.26 M/mm3 (3.65-5.03); Red Cell Distribution Width 13.8 % (13.2-15.2)
[2018-06-12 06:15] LABS: BUN/Creatinine Ratio 35; Blood Urea Nitrogen 28 mg/dL (7-17); Calcium 9.4 mg/dL (8.4-10.2); Hemolysis Index 0
[2018-06-12] MEDS: SODIUM CHLORIDE FLUSH SYRINGE 10 ML IV SCH ×2 (11:06→22:17)
--- NOTE | 2018-06-12 12:57 | Progress Note ---
Assessment and Plan Assessment and plan: 38-year-old woman who presented with pleuritic chest pain. She was complaining of cough. She was diagnosed with right middle lobe pneumonia was treated with antibiotics. While in hospital she had fevers and worsening neck pain and reduced range of motion of her neck. Her blood cultures grew staph aureus. She then went on to have an MRI of her cervical spine which is consistent with epidural abscess. Therefore she was transferred to [place], where she had drainage of cervical spine epidural abscess and laminectomy on 06/06/18 -She was counseled on THC and tobacco cessation, and given nicotine patches -she was rx with iv abx, -she is pending home health set up for weekly labs, home iv abx have already been arranged through [facility] -she is to continue cefazolin 2g Q8H till 07/19/18, PICC line placed at [facility], per their ID - Dr Ritchie Faith MD she is to fup with [facility] , Dax Barnes MD, within 6 weeks of her surgery -she was transferred back to [facility] on 06/11/18, as they were unable to arrange we ekly labs for her at home -Case management consult pending, will dc when arrangements have been made Problems Sepsis Cervical spine epidural abscess Staph aureus bacteremia Hypertension Diabetes Nicotine abuse with dependence THC abuse Obesity History Interval history: She continues to have neck pain, which she states is manageable and mild Review of systems Constitutional: No fevers, no malaise, no joint pains CVS: No chest pain, no orthopnea, no dyspnea on exertion, no pedal edema GI: No abdominal pain, no diarrhea, no vomiting, no constipation Respiratory: No shortness of breath, no wheezing, no coughing Hospitalist Physical - Physical exam Narrative exam: General.: Appears well, no distress, nontoxic HEENT: Moist mucous membranes, extraocular muscles intact, no lymphadenopathy Neck: supple Cardiac: S1-S2 heard Lungs: clear to auscultation bilaterally Abdomen: soft , nontender, nondistended, bowel sounds positive Extremities: no edema clubbing or cyanosis Skin: no rash or lesions Neurologic: no gross focal deficits Psych: calm, and cooperative - Constitutional Vitals: Temp Pulse Resp BP Pulse Ox 100.0 F H 107 H 18 98/54 98 06/12/18 05:17 06/12/18 05:17 06/12/18 06:39 06/12/18 05:17 06/12/18 05:17 General appearance: Present: no acute distress, obese Results - Labs CBC & Chem 7: 06/12/18 05:40 06/12/18 05:40 Labs: Laboratory Last Values WBC 16.9 K/mm3 (4.5-11.0) H 06/12/18 05:40 RBC 3.26 M/mm3 (3.65-5.03) L 06/12/18 05:40 Hgb 9.9 gm/dl (10.1-14.3) L 06/12/18 05:40 Hct 29.5 % (30.3-42.9) L 06/12/18 05:40 MCV 91 fl (79-97) 06/12/18 05:40 MCH 30 pg (28-32) 06/12/18 05:40 MCHC 34 % (30-34) 06/12/18 05:40 RDW 13.8 % (13.2-15.2) 06/12/18 05:40 Plt Count 612 K/mm3 (140-440) H 06/12/18 05:40 Lymph % (Auto) 23.2 % (13.4-35.0) 06/12/18 05:40 [place] % (Auto) 11.2 % (0.0-7.3) H 06/12/18 05:40 Eos % (Auto) 4.8 % (0.0-4.3) H 06/12/18 05:40 Baso % (Auto) 1.0 % (0.0-1.8) 06/12/18 05:40 Lymph # 3.9 K/mm3 (1.2-5.4) 06/12/18 05:40 [place] # 1.9 K/mm3 (0.0-0.8) H 06/12/18 05:40 Eos # 0.8 K/mm3 (0.0-0.4) H 06/12/18 05:40 Baso # 0.2 K/mm3 (0.0-0.1) H 06/12/18 05:40 Seg Neutrophils % 59.8 % (40.0-70.0) 06/12/18 05:40 Seg Neutrophils # 10.1 K/mm3 (1.8-7.7) H 06/12/18 05:40 Sodium 136 mmol/L (137-145) L 06/12/18 05:40 Potassium 4.6 mmol/L (3.6-5.0) 06/12/18 05:40 Chloride 97.3 mmol/L (98-107) L 06/12/18 05:40 Carbon Dioxide 29 mmol/L (22-30) 06/12/18 05:40 Anion Gap 14 mmol/L 06/12/18 05:40 BUN 28 mg/dL (7-17) H 06/12/18 05:40 Creatinine 0.8 mg/dL (0.7-1.2) 06/12/18 05:40 Estimated GFR > 60 ml/min 06/12/18 05:40 BUN/Creatinine Ratio 35 % 06/12/18 05:40 Glucose 111 mg/dL (65-100) H 06/12/18 05:40 POC Glucose 109 (70-105) H 06/12/18 07:44 Calcium 9.4 mg/dL (8.4-10.2) 06/12/18 05:40
[2018-06-12] MEDS: HABITROL TD SCH ×2 (14:11→17:38)
[2018-06-12] MEDS: FLEXERIL PO PRN (14:11)
[2018-06-12] MEDS: NAFCILLIN 2 GM in NACL 0.9% 100 ML IV SCH ×3 (14:45→22:14)
[2018-06-12] MEDS: GLUCOPHAGE PO SCH (17:32)
[2018-06-13] MEDS: PERCOCET 5/325 PO PRN ×5 (00:16→18:03)
[2018-06-13] MEDS: NAFCILLIN 2 GM in NACL 0.9% 100 ML IV SCH ×3 (02:09→10:00)
[2018-06-13] MEDS: GLUCOPHAGE PO SCH ×2 (09:47→17:12)
[2018-06-13] MEDS: SODIUM CHLORIDE FLUSH SYRINGE 10 ML IV SCH ×2 (09:48→21:43)
[2018-06-13] MEDS: HABITROL TD SCH (09:48)
[2018-06-13] MEDS ORDERED: GLYCERIN ADULT 2 GM PR PRN (11:00)
[2018-06-13] MEDS ORDERED: SENOKOT S PO PRN (11:00)
[2018-06-13] MEDS ORDERED: DULCOLAX PR PRN (11:00)
[2018-06-13] MEDS ORDERED: MIRALAX 3350 PO PRN (11:00)
--- NOTE | 2018-06-13 11:08 | Progress Note ---
Assessment and Plan Assessment and plan: 38-year-old woman who presented with pleuritic chest pain. She was complaining of cough. She was diagnosed with right middle lobe pneumonia was treated with antibiotics. While in hospital she had fevers and worsening neck pain and reduced range of motion of her neck. Her blood cultures grew staph aureus. She then went on to have an MRI of her cervical spine which is consistent with epidural abscess. Therefore she was transferred to [place], where she had drainage of cervical spine epidural abscess and laminectomy on 06/06/18 -She was counseled on THC and tobacco cessation, and given nicotine patches -she was rx with iv abx, -she is pending home health set up for weekly labs, home iv abx have already been arranged through [facility] -she is to continue cefazolin 2g Q8H till 07/19/18, PICC line placed at [facility], per their ID - Dr Ritchie Faith MD she is to fup with [facility] , Dax Barnes MD, within 6 weeks of her surgery -she was transferred back to [facility] on 06/11/18, as they were unable to arrange we ekly labs for her at home -Case management consult pending, will dc when arrangements have been made Problems Sepsis Cervical spine epidural abscess Staph aureus bacteremia Hypertension Diabetes Nicotine abuse with dependence THC abuse Obesity History Interval history: She continues to have neck pain, which she states is manageable and mild Review of systems Constitutional: No fevers, no malaise, no joint pains CVS: No chest pain, no orthopnea, no dyspnea on exertion, no pedal edema GI: No abdominal pain, no diarrhea, no vomiting, no constipation Respiratory: No shortness of breath, no wheezing, no coughing Hospitalist Physical - Physical exam Narrative exam: General.: Appears well, no distress, nontoxic HEENT: Moist mucous membranes, extraocular muscles intact, no lymphadenopathy Neck: supple Cardiac: S1-S2 heard Lungs: clear to auscultation bilaterally Abdomen: soft , nontender, nondistended, bowel sounds positive Extremities: no edema clubbing or cyanosis Skin: no rash or lesions Neurologic: no gross focal deficits Psych: calm, and cooperative - Constitutional Vitals: Temp Pulse Resp BP Pulse Ox 98.6 F 111 H 18 137/95 95 06/13/18 05:23 06/13/18 05:23 06/13/18 05:23 06/13/18 05:23 06/13/18 09:51 General appearance: Present: no acute distress, obese Results - Labs CBC & Chem 7: 06/12/18 05:40 06/12/18 05:40 Labs: Laboratory Last Values WBC 16.9 K/mm3 (4.5-11.0) H 06/12/18 05:40 RBC 3.26 M/mm3 (3.65-5.03) L 06/12/18 05:40 Hgb 9.9 gm/dl (10.1-14.3) L 06/12/18 05:40 Hct 29.5 % (30.3-42.9) L 06/12/18 05:40 MCV 91 fl (79-97) 06/12/18 05:40 MCH 30 pg (28-32) 06/12/18 05:40 MCHC 34 % (30-34) 06/12/18 05:40 RDW 13.8 % (13.2-15.2) 06/12/18 05:40 Plt Count 612 K/mm3 (140-440) H 06/12/18 05:40 Lymph % (Auto) 23.2 % (13.4-35.0) 06/12/18 05:40 [place] % (Auto) 11.2 % (0.0-7.3) H 06/12/18 05:40 Eos % (Auto) 4.8 % (0.0-4.3) H 06/12/18 05:40 Baso % (Auto) 1.0 % (0.0-1.8) 06/12/18 05:40 Lymph # 3.9 K/mm3 (1.2-5.4) 06/12/18 05:40 [place] # 1.9 K/mm3 (0.0-0.8) H 06/12/18 05:40 Eos # 0.8 K/mm3 (0.0-0.4) H 06/12/18 05:40 Baso # 0.2 K/mm3 (0.0-0.1) H 06/12/18 05:40 Seg Neutrophils % 59.8 % (40.0-70.0) 06/12/18 05:40 Seg Neutrophils # 10.1 K/mm3 (1.8-7.7) H 06/12/18 05:40 Sodium 136 mmol/L (137-145) L 06/12/18 05:40 Potassium 4.6 mmol/L (3.6-5.0) 06/12/18 05:40 Chloride 97.3 mmol/L (98-107) L 06/12/18 05:40 Carbon Dioxide 29 mmol/L (22-30) 06/12/18 05:40 Anion Gap 14 mmol/L 06/12/18 05:40 BUN 28 mg/dL (7-17) H 06/12/18 05:40 Creatinine 0.8 mg/dL (0.7-1.2) 06/12/18 05:40 Estimated GFR > 60 ml/min 06/12/18 05:40 BUN/Creatinine Ratio 35 % 06/12/18 05:40 Glucose 111 mg/dL (65-100) H 06/12/18 05:40 POC Glucose 109 (70-105) H 06/12/18 07:44 Calcium 9.4 mg/dL (8.4-10.2) 06/12/18 05:40 Nutrition/Malnutrition Assess - Dietary Evaluation Nutrition/Malnutrition Findings: Nutrition Notes Start: 06/12/18 16:24 Freq: Status: Active Protocol: Document 06/12/18 16:24 RM (Rec: 06/12/18 16:30 RM [id number]) Nutrition Notes 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 Stated she ate the eggs and toast from her breakfast but not the oatmeal d/t disliking it. Declined regular ONS d/t similarity to milk. Admitted to constipation. Stated UBW was 160-165 lbs 1 week ago. 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 No Is Patient Ambulatory and/or Out of Bed Yes REE-([place]-St. Jeor-ambulatory/OOB) [ 1822.925 NUTR.MSJOOB] Kcal/Kg value to use for calculation 17 Approximate Energy Requirements Using 1307 kcal/Kg Calculation Used for Recommendations Kcal/kg Additional Notes Protein Needs:50-63g (0.8-1g/ kg, 63kg adjBW) Fluid Needs: 1 ml/kcal Nutrition Intervention Change Diet Order: Cardiac/Consistent CHO Add Supplement/Snack (indicate name/kcal Ensure Clear Apple 1 daily /protein ) Provides kCal: 240 Provides Protein (gm) 8 Goal #1 Meet at least 75% of calorie and protein needs via PO and ONS intakes Anticipated Discharge Needs: Cardiac/Consistent CHO Follow-Up By: 06/15/18 Additional Comments Follow for PO and ONS intakes
[2018-06-13] MEDS: NEURONTIN PO SCH ×2 (13:24→21:40)
[2018-06-13] MEDS: ceFAZolin 2 GM in NACL 0.9% 100 ML IV SCH ×2 (13:59→21:42)
[2018-06-13] MEDS: LIDODERM 5% TD SCH (16:02)
[2018-06-13] MEDS: FLEXERIL PO PRN (18:03)
[2018-06-14] MEDS: FLEXERIL PO PRN ×2 (02:43→22:02)
[2018-06-14] MEDS: PERCOCET 5/325 PO PRN ×4 (02:43→22:01)
[2018-06-14] MEDS: NEURONTIN PO SCH ×3 (06:15→22:02)
[2018-06-14] MEDS: ceFAZolin 2 GM in NACL 0.9% 100 ML IV SCH ×3 (06:15→22:02)
[2018-06-14] MEDS: LIDODERM 5% TD SCH (09:22)
[2018-06-14] MEDS: HABITROL TD SCH (09:22)
[2018-06-14] MEDS: GLUCOPHAGE PO SCH ×2 (09:22→16:34)
--- NOTE | 2018-06-14 12:55 | Progress Note ---
Assessment and Plan Assessment and plan: 38-year-old woman who presented with pleuritic chest pain. She was complaining of cough. She was diagnosed with right middle lobe pneumonia was treated with antibiotics. While in hospital she had fevers and worsening neck pain and reduced range of motion of her neck. Her blood cultures grew staph aureus. She then went on to have an MRI of her cervical spine which is consistent with epidural abscess. Therefore she was transferred to [place], where she had drainage of cervical spine epidural abscess and laminectomy on 06/06/18 -She was counseled on THC and tobacco cessation, and given nicotine patches -she was rx with iv abx, -she is pending home health set up for weekly labs, home iv abx have already been arranged through [facility] -she is to continue cefazolin 2g Q8H till 07/19/18, PICC line placed at [facility], per their ID - Dr Ritchie Faith MD she is to fup with [facility] , Dax Barnes MD, within 6 weeks of her surgery -she was transferred back to [facility] on 06/11/18, as they were unable to arrange we ekly labs or home abx for her at home -Case management consult appreciated, will dc when arrangements have been made Problems Sepsis Cervical spine epidural abscess Staph aureus bacteremia Hypertension Diabetes Nicotine abuse with dependence THC abuse Obesity History Interval history: She continues to have neck pain, which she states is manageable and mild Review of systems Constitutional: No fevers, no malaise, no joint pains CVS: No chest pain, no orthopnea, no dyspnea on exertion, no pedal edema GI: No abdominal pain, no diarrhea, no vomiting, no constipation Respiratory: No shortness of breath, no wheezing, no coughing Hospitalist Physical - Physical exam Narrative exam: General.: Appears well, no distress, nontoxic HEENT: Moist mucous membranes, extraocular muscles intact, no lymphadenopathy Neck: supple Cardiac: S1-S2 heard Lungs: clear to auscultation bilaterally Abdomen: soft , nontender, nondistended, bowel sounds positive Extremities: no edema clubbing or cyanosis Skin: no rash or lesions Neurologic: no gross focal deficits Psych: calm, and cooperative - Constitutional Vitals: Temp Pulse Resp BP Pulse Ox 98.2 F 91 H 20 136/97 98 06/14/18 11:37 06/14/18 11:37 06/14/18 11:37 06/14/18 11:37 06/14/18 11:37 General appearance: Present: no acute distress, obese Results - Labs CBC & Chem 7: 06/12/18 05:40 06/12/18 05:40 Labs: Laboratory Last Values WBC 16.9 K/mm3 (4.5-11.0) H 06/12/18 05:40 RBC 3.26 M/mm3 (3.65-5.03) L 06/12/18 05:40 Hgb 9.9 gm/dl (10.1-14.3) L 06/12/18 05:40 Hct 29.5 % (30.3-42.9) L 06/12/18 05:40 MCV 91 fl (79-97) 06/12/18 05:40 MCH 30 pg (28-32) 06/12/18 05:40 MCHC 34 % (30-34) 06/12/18 05:40 RDW 13.8 % (13.2-15.2) 06/12/18 05:40 Plt Count 612 K/mm3 (140-440) H 06/12/18 05:40 Lymph % (Auto) 23.2 % (13.4-35.0) 06/12/18 05:40 [place] % (Auto) 11.2 % (0.0-7.3) H 06/12/18 05:40 Eos % (Auto) 4.8 % (0.0-4.3) H 06/12/18 05:40 Baso % (Auto) 1.0 % (0.0-1.8) 06/12/18 05:40 Lymph # 3.9 K/mm3 (1.2-5.4) 06/12/18 05:40 [place] # 1.9 K/mm3 (0.0-0.8) H 06/12/18 05:40 Eos # 0.8 K/mm3 (0.0-0.4) H 06/12/18 05:40 Baso # 0.2 K/mm3 (0.0-0.1) H 06/12/18 05:40 Seg Neutrophils % 59.8 % (40.0-70.0) 06/12/18 05:40 Seg Neutrophils # 10.1 K/mm3 (1.8-7.7) H 06/12/18 05:40 Sodium 136 mmol/L (137-145) L 06/12/18 05:40 Potassium 4.6 mmol/L (3.6-5.0) 06/12/18 05:40 Chloride 97.3 mmol/L (98-107) L 06/12/18 05:40 Carbon Dioxide 29 mmol/L (22-30) 06/12/18 05:40 Anion Gap 14 mmol/L 06/12/18 05:40 BUN 28 mg/dL (7-17) H 06/12/18 05:40 Creatinine 0.8 mg/dL (0.7-1.2) 06/12/18 05:40 Estimated GFR > 60 ml/min 06/12/18 05:40 BUN/Creatinine Ratio 35 % 06/12/18 05:40 Glucose 111 mg/dL (65-100) H 06/12/18 05:40 POC Glucose 109 (70-105) H 06/12/18 07:44 Calcium 9.4 mg/dL (8.4-10.2) 06/12/18 05:40 Nutrition/Malnutrition Assess - Dietary Evaluation Nutrition/Malnutrition Findings: Nutrition Notes Start: 06/12/18 16:24 Freq: Status: Active Protocol: Document 06/12/18 16:24 RM (Rec: 06/12/18 16:30 RM [id number]) Nutrition Notes 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 Stated she ate the eggs and toast from her breakfast but not the oatmeal d/t disliking it. Declined regular ONS d/t similarity to milk. Admitted to constipation. Stated UBW was 160-165 lbs 1 week ago. 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 No Is Patient Ambulatory and/or Out of Bed Yes REE-([place]-St. Jeor-ambulatory/OOB) [ 1822.925 NUTR.MSJOOB] Kcal/Kg value to use for calculation 17 Approximate Energy Requirements Using 1307 kcal/Kg Calculation Used for Recommendations Kcal/kg Additional Notes Protein Needs:50-63g (0.8-1g/ kg, 63kg adjBW) Fluid Needs: 1 ml/kcal Nutrition Intervention Change Diet Order: Cardiac/Consistent CHO Add Supplement/Snack (indicate name/kcal Ensure Clear Apple 1 daily /protein ) Provides kCal: 240 Provides Protein (gm) 8 Goal #1 Meet at least 75% of calorie and protein needs via PO and ONS intakes Anticipated Discharge Needs: Cardiac/Consistent CHO Follow-Up By: 06/15/18 Additional Comments Follow for PO and ONS intakes
[2018-06-14] MEDS: SODIUM CHLORIDE FLUSH SYRINGE 10 ML IV SCH (14:00)
--- NOTE | 2018-06-14 20:28 | Consultation ---
History of Present Illness - Reason for Consult Consult date: 06/14/18 epidural abscess Requesting physician: TERRI TYSON - History of Present Illness 38-year-old female with hypertension, diabetes mellitus type 2, polycystic ovarian disease, active smoker, hidradenitis in bilateral axillary regions, most recent active lesion to the right axilla a month before admission; initially admitted on 05/16/2018 due to 3 week history of acute onset of right upper back pain. The pain got so severe that she had to be brought to the hospital and was hospitalized. She underwent an MRI of the thoracic spine with contrast which showed some thoracic spondylosis and a small left paracentral disc protrusion at T7-T8 without mass effect. She also had a CT abdomen and pelvis with contrast which was unremarkable. Hence was discharged home. She got readmitted on 05/31/2018 with right sided pleuritic chest pain, some shortness of breath as well as severe neck pain. She was noted to have a leukocytosis, blood cultures were drawn and returned positive MSSA 2 of 4 bottles. MRI of her cervical spine showed an epidural abscess. Therefore she was transferred to [place] on 06/04/2018, where she had drainage of cervical spine epidural abscess and laminectomy by TOMA Augustin on 06/06/18. Home health was to be set up for weekly labs, home iv abx through [place], however given that she is unfunded it could not be arranged. She was continued on cefazolin 2g Q8H untill 07/19/18, PICC line placed at [place], she saw ID - Dr Ritchie Faith. Review of Systems: General: no fevers,chills and night sweats HEENT: no new visual disturbance Respiratory: slight cough, no sputum, hemoptysis Cardiovascular: no Pleuritic chest pain , no syncope Gastrointestinal: No nausea, vomiting or diarrhea Genitourinary: No dysuria or hematuria Musculoskeletal: + neck pain / upper back pain / surgical wound Neurologic: No headaches, seizures Hematologic: No easy bruising or bleeding Endocrine: no night sweats, no acute weight loss Skin: negative for rash, jaundice Psychiatric: No suicidal or homicidal ideation Past History Past Medical History: diabetes, hypertension, other (PCOS) Past Surgical History: Other (Epidural Abscess) Social history: single, smoking Family history: diabetes, hypertension Medications and Allergies Allergies Allergy/AdvReac Type Severity Reaction Status Date / Time No Known Allergies Allergy Verified 05/16/18 10:16 Home Medications Medication Instructions Recorded Confirmed Last Taken Type Carvedilol [Coreg] 6.25 mg PO BID #60 tablet 05/17/18 06/14/18 05/30/18 10:00 Rx metFORMIN [Glucophage] 500 mg PO BID #60 tablet 05/17/18 06/14/18 05/30/18 10:00 Rx Labetalol HCl 100 mg PO TID 06/01/18 06/14/18 05/28/18 History methylPREDNISolone [Medrol] 4 mg PO DAILY #1 tab.ds.pk 06/03/18 06/14/18 Unknown Rx oxyCODONE [Roxicodone TAB] 10 mg PO Q6HR PRN #20 tablet 06/03/18 06/14/18 Unknown Rx Active Meds: Active Medications Acetaminophen (Tylenol) 650 mg PO Q4H PRN PRN Reason: Pain MILD(1-3)/Fever >100.5/WHITT Albuterol (Proventil) 2.5 mg IH Q4HRT PRN PRN Reason: Shortness Of Breath Bisacodyl (Dulcolax) 10 mg [place] Q72H PRN PRN Reason: Constipation Cyclobenzaprine HCl (Flexeril) 10 mg PO Q8H PRN PRN Reason: Muscle Spasm Last Admin: 06/14/18 02:43 Dose: 10 mg Documented by: Gabapentin (Neurontin) 300 mg PO Q8HR [facility] Last Admin: 06/14/18 14:00 Dose: 300 mg Documented by: Glycerin (Glycerin Adult 2 Gm) 1 supp [place] QDAY PRN PRN Reason: Constipation Cefazolin Sodium 2 gm/ Sodium (Chloride) 100 mls @ 200 mls/hr IV Q8HR [facility] Stop: 07/19/18 22:29 Last Admin: 06/14/18 14:01 Dose: 200 mls/hr Documented by: Lidocaine (Lidoderm 5%) 1 each TD QDAY [facility] Last Admin: 06/14/18 09:22 Dose: 1 each Documented by: Metformin HCl (Glucophage) 500 mg PO BIDDIAB [facility] Last Admin: 06/14/18 16:34 Dose: 500 mg Documented by: Nicotine (Habitrol) 21 mg TD QDAY [facility] Last Admin: 06/14/18 09:22 Dose: 21 mg Documented by: Ondansetron HCl (Zofran) 4 mg IV Q8H PRN PRN Reason: Nausea And Vomiting Last Admin: 06/13/18 09:50 Dose: 4 mg Documented by: Oxycodone/Acetaminophen (Percocet 5/325) 2 tab PO Q4H PRN PRN Reason: Pain, Moderate (4-6) Last Admin: 06/14/18 16:36 Dose: 2 tab Documented by: Polyethylene Glycol (Miralax 3350) 17 gm PO QDAY PRN PRN Reason: Constipation Senna/Docusate Sodium (Senokot S) 2 tab PO Q12H PRN PRN Reason: Laxative Effect Sodium Chloride (Sodium Chloride Flush Syringe 10 Ml) 10 ml IV BID [facility] Last Admin: 06/14/18 14:00 Dose: 10 ml Documented by: Sodium Chloride (Sodium Chloride Flush Syringe 10 Ml) 10 ml IV PRN PRN PRN Reason: LINE FLUSH Last Admin: 06/14/18 06:16 Dose: 10 ml Documented by: Physical Examination - Physical Exam Narrative exam: Constitutional: Alert, cooperative. No acute distress Head, Ears, Nose: Normocephalic, atraumatic. External ears, nose normal Eyes: Conjunctivae/corneas clear. No icterus. No ptosis. Neck: +large midline posterior cervical surgical wound with surgical glue Oral: no thrush Cardiovascular: S1, S2 normal. Respiratory: Good air entry, clear to auscultation bilaterally GI: Soft, non-tender; bowel sounds normal. No peritoneal signs Musculoskeletal: No pedal edema, no cyanosis. Skin: No rash or abscess. B/L axillary regions with hyperpigmented areas consistent with hidradenitis, no active lesion with drainage Hem/Lymphatic: No palpable cervical or supraclavicular nodes. No lymphangitis Psych: Mood ok. Affect normal Neurological: Awake, alert, oriented. No gross abnormality. No weakness - Constitutional Vitals: Vital Signs Temp Pulse Resp BP Pulse Ox 97.7 F 104 H 20 168/99 97 06/14/18 17:07 06/14/18 17:07 06/14/18 17:07 06/14/18 17:07 06/14/18 17:07 Temperature -Last 24 Hours Temperature 97.7 F Temperature 98.2 F Temperature 97.9 F Temperature 98.0 F Results - Labs CBC & Chem 7: 06/12/18 05:40 06/12/18 05:40 Assessment and Plan Cultures: 05/31/2018 blood culture MSSA 06/03/2018 blood culture negative A/P: 38-year-old female with hypertension, diabetes mellitus type 2, polycystic ovarian disease, active smoker, hidradenitis admitted with back pain, found to have: 1) Initial Sepsis likely secondary to MSSA bacteremia. 2) Complicated MSSA bacteremia: Source cervical epidural abscess. Blood culture 05/31/2018 MSSA 2 of 4 bottles, repeat blood culture 06/03/2018 negative. TTE no vegetations. -transferred to [place] on 06/04/2018, -S/p drainage of cervical spine epidural abscess and laminectomy by TOMA Augustin on 06/06/18 -She was continued on cefazolin 2g Q8H untill 07/19/18, PICC line placed at [place], she saw ID - Dr Ritchie Faith. 3) H/O substance abuse Recs: Continue cefazolin 2g Q8H for 6 weeks untill 07/19/18. Will request drake quotes to [facility]. Orders will be sent to social work case manager check CRP MD [facility] C: [phone] O: [phone] F: [phone]
[2018-06-15] MEDS: PERCOCET 5/325 PO PRN ×3 (05:38→21:06)
[2018-06-15] MEDS: ceFAZolin 2 GM in NACL 0.9% 100 ML IV SCH ×3 (05:38→21:06)
[2018-06-15] MEDS: NEURONTIN PO SCH ×3 (05:39→21:06)
[2018-06-15] MEDS: SODIUM CHLORIDE FLUSH SYRINGE 10 ML IV SCH ×3 (05:42→21:12)
--- NOTE | 2018-06-15 08:49 | Progress Note ---
Assessment and Plan Cultures: 05/31/2018 blood culture MSSA 06/03/2018 blood culture negative A/P: 38-year-old female with hypertension, diabetes mellitus type 2, polycystic ovarian disease, active smoker, hidradenitis admitted with back pain, found to have: 1) Initial Sepsis likely secondary to MSSA bacteremia. 2) Complicated MSSA bacteremia: Source cervical epidural abscess. Blood culture 05/31/2018 MSSA 2 of 4 bottles, repeat blood culture 06/03/2018 negative. TTE no vegetations. -transferred to [place] on 06/04/2018, -S/p drainage of cervical spine epidural abscess and laminectomy by Dr Dax Barnes, NS on 06/06/18 -She was continued on cefazolin 2g Q8H untill 07/19/18, PICC line placed at [place], she saw ID - Dr Ritchie Faith. -CRP 7.10 3) H/O substance abuse Recs: Continue cefazolin 2g Q8H for 6 weeks untill 07/19/18. Will request drake quotes to [employer]. Orders will be sent to porter sample case Mickie Berumen NP [facility] M: [phone] O:[phone] Subjective Date of service: 06/15/18 Interval history: Patient seen and examined. Stated that she continues to have lower back pain, 7 out of 10 on numeric pain scale. Nurses notes, lab, and reports reviewed, discussed with patient, questions answered. Objective - Exam Narrative Exam: Constitutional: Asleep, easily arousable. mild distress, lower back pain 7/10 Head, Ears, Nose: Normocephalic, atraumatic. External ears, nose normal Eyes: Conjunctivae/corneas clear. No icterus. No ptosis. Neck: +large midline posterior cervical surgical wound with surgical glue Oral: no thrush Cardiovascular: S1, S2 normal. Respiratory: Good air entry, clear to auscultation bilaterally GI: Soft, non-tender; bowel sounds normal. No peritoneal signs Musculoskeletal: No pedal edema, no cyanosis. Skin: No rash or abscess. B/L axillary regions with hyperpigmented areas consistent with hidradenitis, no active lesion with drainage Hem/Lymphatic: No palpable cervical or supraclavicular nodes. No lymphangitis Psych: Mood ok. Affect normal Neurological: Awake, alert, oriented. No gross abnormality. No weakness - Constitutional Vitals: Vital Signs Temp Pulse Resp BP Pulse Ox 97.9 F 87 18 148/99 96 06/15/18 05:09 06/15/18 05:09 06/15/18 06:38 06/15/18 05:09 06/15/18 05:09 Temperature -Last 24 Hours Temperature 97.9 F Temperature 97.3 F Temperature 97.7 F Temperature 98.2 F - Labs CBC & Chem 7: 06/15/18 Unknown 06/12/18 05:40
[2018-06-15] MEDS: GLUCOPHAGE PO SCH ×2 (10:07→16:36)
[2018-06-15] MEDS: HABITROL TD SCH (10:07)
[2018-06-15] MEDS: LIDODERM 5% TD SCH (10:07)
[2018-06-15 10:30] LABS: Basophils # (Auto) 0.1 K/mm3 (0.0-0.1); Eosinophils # (Auto) 0.5 K/mm3 (0.0-0.4); Eosinophils % (Auto) 4.9 % (0.0-4.3); Hematocrit 30.2 % (30.3-42.9); Lymphocytes # (Auto) 3.3 K/mm3 (1.2-5.4); Lymphocytes % (Auto) 29.9 % (13.4-35.0); Mean Corpuscular HGB Conc 33 % (30-34); Mean Corpuscular Volume 91 fl (79-97); Monocytes # (Auto) 0.9 K/mm3 (0.0-0.8); Monocytes % (Auto) 8.4 % (0.0-7.3); Platelet Count 560 K/mm3 (140-440); Red Blood Count 3.33 M/mm3 (3.65-5.03); Red Cell Distribution Width 13.7 % (13.2-15.2)
[2018-06-15] MEDS ORDERED: APRESOLINE IV PRN (12:12)
[2018-06-15] MEDS: ZESTRIL PO SCH (13:17)
[2018-06-15] MEDS: NORVASC PO SCH (13:19)
--- NOTE | 2018-06-15 15:20 | Progress Note ---
Assessment and Plan Assessment and plan: 38-year-old woman who presented with pleuritic chest pain. She was complaining of cough. She was diagnosed with right middle lobe pneumonia was treated with antibiotics. While in hospital she had fevers and worsening neck pain and reduced range of motion of her neck. Her blood cultures grew staph aureus. She then went on to have an MRI of her cervical spine which is consistent with epidural abscess. Therefore she was transferred to [place], where she had drainage of cervical spine epidural abscess and laminectomy on 06/06/18 -She was counseled on THC and tobacco cessation, and given nicotine patches -she was rx with iv abx, -she is pending home health set up for weekly labs, home iv abx have already been arranged through [place] -she is to continue cefazolin 2g Q8H till 07/19/18, PICC line placed at [place], per their ID - Dr Ritchie Faith MD she is to fup with [facility] , Dax Barnes MD, within 6 weeks of her surgery -she was transferred back to [facility] on 06/11/18, as they were unable to arrange we ekly labs or home abx for her at home -Case management consult appreciated, will dc when arrangements have been made Problems Sepsis Cervical spine epidural abscess Staph aureus bacteremia Hypertension Diabetes Nicotine abuse with dependence THC abuse Obesity History Interval history: She continues to have neck pain, which she states is manageable and mild Review of systems Constitutional: No fevers, no malaise, no joint pains CVS: No chest pain, no orthopnea, no dyspnea on exertion, no pedal edema GI: No abdominal pain, no diarrhea, no vomiting, no constipation Respiratory: No shortness of breath, no wheezing, no coughing Hospitalist Physical - Physical exam Narrative exam: General.: Appears well, no distress, nontoxic HEENT: Moist mucous membranes, extraocular muscles intact, no lymphadenopathy Neck: supple Cardiac: S1-S2 heard Lungs: clear to auscultation bilaterally Abdomen: soft , nontender, nondistended, bowel sounds positive Extremities: no edema clubbing or cyanosis Skin: no rash or lesions Neurologic: no gross focal deficits Psych: calm, and cooperative - Constitutional Vitals: Temp Pulse Resp BP Pulse Ox 98.1 F 94 H 20 139/109 97 06/15/18 13:02 06/15/18 13:02 06/15/18 13:02 06/15/18 13:19 06/15/18 13:02 General appearance: Present: no acute distress, obese Results - Labs CBC & Chem 7: 06/15/18 Unknown 06/12/18 05:40 Labs: Laboratory Last Values WBC 11.0 K/mm3 (4.5-11.0) 06/15/18 Unknown RBC 3.33 M/mm3 (3.65-5.03) L 06/15/18 Unknown Hgb 10.0 gm/dl (10.1-14.3) L 06/15/18 Unknown Hct 30.2 % (30.3-42.9) L 06/15/18 Unknown MCV 91 fl (79-97) 06/15/18 Unknown MCH 30 pg (28-32) 06/15/18 Unknown MCHC 33 % (30-34) 06/15/18 Unknown RDW 13.7 % (13.2-15.2) 06/15/18 Unknown Plt Count 560 K/mm3 (140-440) H 06/15/18 Unknown Lymph % (Auto) 29.9 % (13.4-35.0) 06/15/18 Unknown Cobb % (Auto) 8.4 % (0.0-7.3) H 06/15/18 Unknown Eos % (Auto) 4.9 % (0.0-4.3) H 06/15/18 Unknown Baso % (Auto) 1.0 % (0.0-1.8) 06/15/18 Unknown Lymph # 3.3 K/mm3 (1.2-5.4) 06/15/18 Unknown Cobb # 0.9 K/mm3 (0.0-0.8) H 06/15/18 Unknown Eos # 0.5 K/mm3 (0.0-0.4) H 06/15/18 Unknown Baso # 0.1 K/mm3 (0.0-0.1) 06/15/18 Unknown Seg Neutrophils % 55.8 % (40.0-70.0) 06/15/18 Unknown Seg Neutrophils # 6.1 K/mm3 (1.8-7.7) 06/15/18 Unknown Sodium 136 mmol/L (137-145) L 06/12/18 05:40 Potassium 4.6 mmol/L (3.6-5.0) 06/12/18 05:40 Chloride 97.3 mmol/L (98-107) L 06/12/18 05:40 Carbon Dioxide 29 mmol/L (22-30) 06/12/18 05:40 Anion Gap 14 mmol/L 06/12/18 05:40 BUN 28 mg/dL (7-17) H 06/12/18 05:40 Creatinine 0.8 mg/dL (0.7-1.2) 06/12/18 05:40 Estimated GFR > 60 ml/min 06/12/18 05:40 BUN/Creatinine Ratio 35 % 06/12/18 05:40 Glucose 111 mg/dL (65-100) H 06/12/18 05:40 POC Glucose 109 (70-105) H 06/12/18 07:44 Calcium 9.4 mg/dL (8.4-10.2) 06/12/18 05:40 C-Reactive Protein 7.10 mg/dL (0.00-1.30) H 06/15/18 Unknown Nutrition/Malnutrition Assess - Dietary Evaluation Nutrition/Malnutrition Findings: Nutrition Notes Start: 06/12/18 16:24 Freq: Status: Active Protocol: Document 06/15/18 13:52 RM (Rec: 06/15/18 13:59 RM [id number]) Nutrition Notes Initial or Follow up Brief Note Current Diagnosis Diabetes Hypertension Other Pertinent Diagnosis PCOS, epidural abscess Current Diet Cardiac/consistent CHO w/ Ensure Clear 1 daily Subjective/Other Information Pt stated that she has not been eating breakfast but eats half of her lunch and dinner. Stated she does not like the Ensure Clear that much but forces herself to drink it. Stated she is willing to try Mixed Weeks flavor. Nutrition Intervention Add Supplement/Snack (indicate name/kcal Ensure Clear Flavor rotate 1 /protein ) daily Provides kCal: 240 Provides Protein (gm) 8 Follow-Up By: 06/17/18 Additional Comments Follow for PO and ONS intakes
[2018-06-15] MEDS: FLEXERIL PO PRN (21:06)
[2018-06-16] MEDS: ceFAZolin 2 GM in NACL 0.9% 100 ML IV SCH (05:10)
[2018-06-16] MEDS: PERCOCET 5/325 PO PRN ×2 (05:11→10:07)
[2018-06-16] MEDS: NEURONTIN PO SCH (05:11)
--- NOTE | 2018-06-16 09:12 | Progress Note ---
Assessment and Plan Cultures: 05/31/2018 blood culture MSSA 06/03/2018 blood culture negative A/P: 38-year-old female with hypertension, diabetes mellitus type 2, polycystic ovarian disease, active smoker, hidradenitis admitted with back pain, found to have: 1) Initial Sepsis Resolved, likely secondary to MSSA bacteremia. 2) Complicated MSSA bacteremia: Source cervical epidural abscess. Blood culture 05/31/2018 MSSA 2 of 4 bottles, repeat blood culture 06/03/2018 negative. TTE no vegetations. -transferred to [place] on 06/04/2018, -S/p drainage of cervical spine epidural abscess and laminectomy by Dr Dax Barnes, [place] on 06/06/18 -She was continued on cefazolin 2g Q8H untill 07/19/18, PICC line placed at [place], she saw ID - Dr Ritchie Faith. -CRP 7.10 3) H/O substance abuse Recs: Continue cefazolin 2g Q8H for 6 weeks until 07/19/18. Ok to discharge from ID standpoint, Will go to office for teach and train today anytime before 4:00 p.m f/u appointment 07/[address] Raji Berumen, [facility] M: [phone] O:[phone] Subjective Date of service: 06/16/18 Interval history: Patient seen and examined. Stated that lower back pain is improving. Nurses notes, lab, and reports reviewed, discussed with patient, questions answered. Objective - Exam Narrative Exam: Constitutional: Asleep, easily arousable. no acute distress observed Head, Ears, Nose: Normocephalic, atraumatic. External ears, nose normal Eyes: Conjunctivae/corneas clear. No icterus. No ptosis. Neck: +large midline posterior cervical surgical wound with surgical glue Oral: no thrush Cardiovascular: S1, S2 normal. Respiratory: Good air entry, clear to auscultation bilaterally GI: Soft, non-tender; bowel sounds normal. No peritoneal signs Musculoskeletal: No pedal edema, no cyanosis. Skin: No rash or abscess. B/L axillary regions with hyperpigmented areas consistent with hidradenitis, no active lesion with drainage Hem/Lymphatic: No palpable cervical or supraclavicular nodes. No lymphangitis Psych: Mood ok. Affect normal Neurological: Awake, alert, oriented. No gross abnormality. No weakness - Constitutional Vitals: Vital Signs Temp Pulse Resp BP Pulse Ox 97.9 F 85 18 119/72 94 06/16/18 05:00 06/16/18 05:00 06/16/18 05:11 06/15/18 23:04 06/16/18 05:00 Temperature -Last 24 Hours Temperature 97.9 F Temperature 98.2 F Temperature 97.9 F Temperature 98.1 F Temperature 98.3 F - Labs CBC & Chem 7: 06/15/18 Unknown 06/12/18 05:40 Labs: Abnormal lab results 06/15/18 06/15/18 Range/Units Unknown Unknown RBC 3.33 L (3.65-5.03) M/mm3 Hgb 10.0 L (10.1-14.3) gm/dl Hct 30.2 L (30.3-42.9) % Plt Count 560 H (140-440) K/mm3 Roosevelt % (Auto) 8.4 H (0.0-7.3) % Eos % (Auto) 4.9 H (0.0-4.3) % Roosevelt # 0.9 H (0.0-0.8) K/mm3 Eos # 0.5 H (0.0-0.4) K/mm3 C-Reactive Protein 7.10 H (0.00-1.30) mg/dL
[2018-06-16] MEDS ORDERED: NON-FORMULARY (Amlodipine 10 MG) PO SCH (10:00)
[2018-06-16] MEDS: GLUCOPHAGE PO SCH (10:08)
[2018-06-16] MEDS: LIDODERM 5% TD SCH (10:09)
[2018-06-16] MEDS: SODIUM CHLORIDE FLUSH SYRINGE 10 ML IV SCH (10:09)
[2018-06-16] MEDS: ZESTRIL PO SCH (10:11)
[2018-06-16] MEDS: NORVASC PO SCH (10:12)
[2018-06-16] MEDS: HABITROL TD SCH (10:12)
[2018-06-16 11:19] VITALS: BP 137/95
--- NOTE | 2018-06-16 11:55 | Discharge Summary ---
Providers - Providers Date of Admission: 06/11/18 20:15 Attending physician: TERRI TYSON MD 06/13/18 11:08 Consult to Case Management [CONS] Routine Services Needed at Discharge: Home Health Services Notified:: cm Additional Physician Instructions: weekly labs, on Mondays, CBC with diff, CMP till 07/19/18 Cefazolin 2g Q8H, till 07/19/18 06/14/18 11:45 Consult to Physician [CONS] Routine Comment: tx back to [facility] 06/11 without antibiotic setup Consulting Provider: STEPHEN WATSON Physician Instructions: pt was at [facility] with infected disc, tx back to [facility] Reason For Exam: IV Antibiotics Primary care physician: [employer] Hospitalization Hospital course: 38-year-old woman who presented with pleuritic chest pain. She was complaining of cough. She was diagnosed with right middle lobe pneumonia was treated with antibiotics. While in hospital she had fevers and worsening neck pain and reduced range of motion of her neck. Her blood cultures grew staph aureus. She then went on to have an MRI of her cervical spine which is consistent with epidural abscess. Therefore she was transferred to [place], where she had drainage of cervical spine epidural abscess and laminectomy on 06/06/18 -She was counseled on THC and tobacco cessation, and given nicotine patches -she was rx with iv abx, -she is pending home health set up for weekly labs, home iv abx have already been arranged through [facility] [facility] -she is to continue cefazolin 2g Q8H till 07/19/18, PICC line placed at [facility], per their ID - Dr Ritchie Faith MD, and our ID Dr Alegria agrees with the plan she is to fup with [facility] , Dax Barnes MD, within 6 weeks of her surgery -she was transferred back to [facility] on 06/11/18, as they were unable to arrange weekly labs or home abx for her at home -Case management consult appreciated, arrangement for Home health with abx and weekly labs were made prior to dc Problems Sepsis Cervical spine epidural abscess Staph aureus bacteremia Hypertension Diabetes Nicotine abuse with dependence THC abuse Obesity Disposition: DC/TX-06 HOME UNDER HOME TH Time spent for discharge: 33 mins Core Measure Documentation - Palliative Care Palliative Care/ Comfort Measures: Not Applicable - Core Measures Any of the following diagnoses?: none Exam - Physical Exam Narrative exam: General.: Appears well, no distress, nontoxic HEENT: Moist mucous membranes, extraocular muscles intact, no lymphadenopathy Neck: supple Cardiac: S1-S2 heard Lungs: clear to auscultation bilaterally Abdomen: soft , nontender, nondistended, bowel sounds positive Extremities: no edema clubbing or cyanosis Skin: no rash or lesions Neurologic: no gross focal deficits Psych: calm, and cooperative - Constitutional Vitals: Temp Pulse Resp BP Pulse Ox 97.9 F 85 20 137/95 100 06/16/18 11:17 06/16/18 11:17 06/16/18 11:17 06/16/18 11:17 06/16/18 11:17 Plan Follow up with: PRIMARY CARE, [Primary Care Provider] - 7 Days Prescriptions: amLODIPine [Norvasc] 10 mg PO DAILY #30 tablet Cyclobenzaprine [Flexeril 10 MG TAB] 10 mg PO Q8H PRN #30 tablet PRN Reason: Muscle Spasm Gabapentin [Neurontin] 300 mg PO Q8HR #90 capsule Glycerin Adult [address] QDAY PRN #30 supp.rect PRN Reason: Constipation Lisinopril [Zestril TAB] 40 mg PO QDAY #30 tablet metFORMIN [Glucophage] 500 mg PO BID #60 tablet oxyCODONE /ACETAMINOPHEN [Percocet 5/325 mg] 2 tab PO Q4H PRN #30 tablet PRN Reason: Pain, Moderate (4-6) Polyethylene Glycol 3350 [Miralax 3350] 17 gm PO QDAY PRN #30 powd.pack PRN Reason: Constipation
== END 2018-06-16 13:05 | disposition home health service (06) | DRG 871 ==
LOC: UNDOADMIN 15:08 → 3A 15:08
PROVIDERS: ADMIT Internal Medicine; ATTEND Internal Medicine
DX: A41.9 Sepsis, unspecified organism (principal); G06.1 Intraspinal abscess and granuloma; E66.9 Obesity, unspecified; I10 Essential (primary) hypertension; E28.2 Polycystic ovarian syndrome; F19.10 Other psychoactive substance abuse, uncomplicated; B95.62 Methicillin resistant Staphylococcus aureus infection as the cause of diseases classified elsewhere; E11.9 Type 2 diabetes mellitus without complications; F17.200 Nicotine dependence, unspecified, uncomplicated; Z79.84 Long term (current) use of oral hypoglycemic drugs; Z83.3 Family history of diabetes mellitus; Z82.49 Family history of ischemic heart disease and other diseases of the circulatory system; Z68.31 Body mass index [BMI] 31.0-31.9, adult
CPT/HCPCS: 36415; 80048; 82962; 85025; 86140; G0378; J0690; J2405

== ENCOUNTER 2018-06-21 10:00 | Outpatient (CLI) | payer SELFPAY ==
[2018-06-21 10:24] LABS: Basophils # (Auto) 0.1 K/mm3 (0.0-0.1); Basophils % (Auto) 1.1 % (0.0-1.8); Eosinophils # (Auto) 0.5 K/mm3 (0.0-0.4); Hematocrit 33.5 % (30.3-42.9); Hemoglobin 11.2 gm/dl (10.1-14.3); Lymphocytes # (Auto) 3.5 K/mm3 (1.2-5.4); Lymphocytes % (Auto) 35.4 % (13.4-35.0); Mean Corpuscular HGB Conc 33 % (30-34); Mean Corpuscular Volume 90 fl (79-97); Monocytes # (Auto) 0.7 K/mm3 (0.0-0.8); Monocytes % (Auto) 7.6 % (0.0-7.3); Platelet Count 554 K/mm3 (140-440); Red Blood Count 3.74 M/mm3 (3.65-5.03)
[2018-06-21 10:55] LABS: Alanine Aminotransferase 6 units/L (7-56); Albumin 3.8 g/dL (3.9-5); BUN/Creatinine Ratio 28; Blood Urea Nitrogen 17 mg/dL (7-17); Calcium 9.6 mg/dL (8.4-10.2); Hemolysis Index 3
== END 2018-06-21 10:01 | disposition home or self-care (01) ==
LOC: LAB 10:00
PROVIDERS: ATTEND Internal Medicine
DX: G06.1 Intraspinal abscess and granuloma (principal); E11.9 Type 2 diabetes mellitus without complications; I10 Essential (primary) hypertension; F17.210 Nicotine dependence, cigarettes, uncomplicated; Z90.49 Acquired absence of other specified parts of digestive tract
CPT/HCPCS: 36415; 80053; 85025

== ENCOUNTER 2018-06-28 11:22 | Outpatient (CLI) | payer SELFPAY ==
[2018-06-28 12:10] LABS: BUN/Creatinine Ratio 28; Blood Urea Nitrogen 14 mg/dL (7-17); Calcium 9.3 mg/dL (8.4-10.2); Hemolysis Index 4
[2018-06-28 12:17] LABS: Alanine Aminotransferase < 5 units/L (7-56)
[2018-06-28 12:20] LABS: Basophils # (Auto) 0.1 K/mm3 (0.0-0.1); Basophils % (Auto) 0.8 % (0.0-1.8); Eosinophils # (Auto) 0.5 K/mm3 (0.0-0.4); Eosinophils % (Auto) 4.4 % (0.0-4.3); Hemoglobin 11.5 gm/dl (10.1-14.3); Lymphocytes # (Auto) 3.1 K/mm3 (1.2-5.4); Lymphocytes % (Auto) 25.7 % (13.4-35.0); Monocytes # (Auto) 0.9 K/mm3 (0.0-0.8); Monocytes % (Auto) 7.8 % (0.0-7.3)
[2018-06-28 12:26] LABS: Hematocrit 34.9 % (30.3-42.9); Mean Corpuscular HGB Conc 34 % (30-34); Mean Corpuscular Volume 90 fl (79-97); Platelet Count 464 K/mm3 (140-440); Red Blood Count 3.86 M/mm3 (3.65-5.03); Red Cell Distribution Width 15.3 % (13.2-15.2)
== END 2018-06-28 11:23 | disposition home or self-care (01) ==
LOC: LAB 11:22
PROVIDERS: ATTEND Internal Medicine
DX: G06.1 Intraspinal abscess and granuloma (principal); E11.9 Type 2 diabetes mellitus without complications; I10 Essential (primary) hypertension; F17.210 Nicotine dependence, cigarettes, uncomplicated; Z90.49 Acquired absence of other specified parts of digestive tract
CPT/HCPCS: 36415; 80053; 85025

== ENCOUNTER 2018-07-05 09:16 | Outpatient (CLI) | payer SELFPAY ==
[2018-07-05 09:44] LABS: Basophils % (Auto) 0.5 % (0.0-1.8); Eosinophils # (Auto) 0.3 K/mm3 (0.0-0.4); Eosinophils % (Auto) 4.2 % (0.0-4.3); Hematocrit 39.3 % (30.3-42.9); Hemoglobin 13.1 gm/dl (10.1-14.3); Lymphocytes # (Auto) 1.5 K/mm3 (1.2-5.4); Lymphocytes % (Auto) 18.9 % (13.4-35.0); Mean Corpuscular HGB Conc 33 % (30-34); Mean Corpuscular Volume 91 fl (79-97); Monocytes # (Auto) 0.7 K/mm3 (0.0-0.8); Monocytes % (Auto) 8.5 % (0.0-7.3); Platelet Count 355 K/mm3 (140-440); Red Blood Count 4.31 M/mm3 (3.65-5.03); Red Cell Distribution Width 15.7 % (13.2-15.2)
[2018-07-05 10:03] LABS: Albumin 3.9 g/dL (3.9-5); BUN/Creatinine Ratio 21; Blood Urea Nitrogen 15 mg/dL (7-17); Calcium 9.1 mg/dL (8.4-10.2); Hemolysis Index 6
[2018-07-05 10:13] LABS: Alanine Aminotransferase < 5 units/L (7-56)
== END 2018-07-05 09:17 | disposition home or self-care (01) ==
LOC: LAB 09:16
PROVIDERS: ATTEND Internal Medicine
DX: G06.1 Intraspinal abscess and granuloma (principal); B95.61 Methicillin susceptible Staphylococcus aureus infection as the cause of diseases classified elsewhere; R78.81 Bacteremia; I10 Essential (primary) hypertension; E11.9 Type 2 diabetes mellitus without complications
CPT/HCPCS: 36415; 80053; 85025; 86140

== ENCOUNTER 2018-07-12 08:42 | Outpatient (CLI) | payer OTHER ==
[2018-07-12 09:02] LABS: Hematocrit 37.8 % (30.3-42.9); Hemoglobin 13.1 gm/dl (10.1-14.3); Mean Corpuscular HGB Conc 35 % (30-34); Mean Corpuscular Volume 88 fl (79-97); Platelet Count 434 K/mm3 (140-440); Red Blood Count 4.27 M/mm3 (3.65-5.03); Red Cell Distribution Width 15.2 % (13.2-15.2)
[2018-07-12 09:24] LABS: Alanine Aminotransferase 8 units/L (7-56); BUN/Creatinine Ratio 13; Blood Urea Nitrogen 8 mg/dL (7-17); Calcium 9.1 mg/dL (8.4-10.2); Hemolysis Index 16
== END 2018-07-12 08:43 | disposition home or self-care (01) ==
LOC: LAB 08:42
PROVIDERS: ATTEND Internal Medicine Infectious Disease
DX: G06.1 Intraspinal abscess and granuloma (principal); R78.81 Bacteremia; E11.9 Type 2 diabetes mellitus without complications; I10 Essential (primary) hypertension; Z90.49 Acquired absence of other specified parts of digestive tract
CPT/HCPCS: 36415; 80053; 85027; 86140

== ENCOUNTER 2018-07-19 11:07 | Outpatient (CLI) | payer OTHER ==
[2018-07-19 11:59] LABS: Albumin 3.9 g/dL (3.9-5); BUN/Creatinine Ratio 16; Blood Urea Nitrogen 8 mg/dL (7-17); Calcium 9.1 mg/dL (8.4-10.2); Hemolysis Index 5
[2018-07-19 12:08] LABS: Alanine Aminotransferase < 5 units/L (7-56)
[2018-07-19 12:09] LABS: Hematocrit 39.6 % (30.3-42.9); Hemoglobin 13.4 gm/dl (10.1-14.3); Mean Corpuscular HGB Conc 34 % (30-34); Mean Corpuscular Volume 90 fl (79-97); Platelet Count 424 K/mm3 (140-440); Red Blood Count 4.39 M/mm3 (3.65-5.03); Red Cell Distribution Width 15.5 % (13.2-15.2)
== END 2018-07-19 11:08 | disposition home or self-care (01) ==
LOC: LAB 11:07
PROVIDERS: ATTEND Internal Medicine
DX: G06.1 Intraspinal abscess and granuloma (principal); R78.81 Bacteremia; E11.9 Type 2 diabetes mellitus without complications; I10 Essential (primary) hypertension; Z90.49 Acquired absence of other specified parts of digestive tract
CPT/HCPCS: 36415; 80053; 85027; 86140

== ENCOUNTER 2020-02-03 18:05 | Emergency (ER) | payer SELFPAY | END 2020-02-03 19:45 | disposition left against medical advice (07) | LOC: ED 18:05 | DX: R07.89 Other chest pain (principal); Z53.21 Procedure and treatment not carried out due to patient leaving prior to being seen by health care provider ==